=== PATIENT | male | born 2000 | race Asian ===

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

== ENCOUNTER 2020-01-02 16:30 | Inpatient (IN) ==
[2020-01-02 18:05] LABS: Appearance Urine Clear (Clear); Bilirubin Urine Negative (Negative); Blood Urine Negative (Negative); Color Urine Yellow; Glucose Urine UA Negative (Negative); Ketones Urine Negative (Negative); Leukocyte Esterase Urine Negative (Negative); Nitrite Urine Negative (Negative); Protein Urine Negative (Negative); Specific Gravity Urine 1.006 (1.000-1.030); Urobilinogen Urine Negative (Negative)
[2020-01-02 18:25] LABS: Basophils # (auto) 0.01 K/uL (0-0.2); Basophils % (auto) 0.2 %; Eosinophils # (auto) 0.03 K/uL (0-0.5); Eosinophils % (auto) 0.5 %; Hematocrit (blood only) 44.3 % (42-52); Hemoglobin 14.8 g/dL (14.0-18.0); Immature Granulocytes # (auto) 0.01 K/uL (0.00-0.02); Immature Granulocytes % (auto) 0.2 %; Lymphocytes # (auto) 1.19 K/uL (1.2-3.4); Lymphocytes % (auto) 18.4 %; Mean Corpuscular Hemoglobin 30.2 pg (25-34); Mean Corpuscular Hgb Conc 33.4 g/dL (32-36); Mean Corpuscular Volume 90.4 fL (80-100); Mean Platelet Volume 8.9 fL (7.4-10.4); Monocytes # (auto) 0.55 K/uL (0.11-0.59); Monocytes % (auto) 8.5 %; Neutrophils # (auto) 4.69 K/uL (1.4-6.5); Neutrophils % (auto) 72.2 %; Platelet Count 231 K/uL (130-400); RDW Coefficient of Variation 13.4 % (11.5-14.5); RDW Standard Deviation 44.1 fL (36.4-46.3); White Blood Count 6.48 K/uL (4.8-10.8)
--- NOTE | 2020-01-02 18:35 | Emergency Department Note ---
Impression & Plan Suicidal ideation, Bipolar disorder with severe suzanne ED Provider Note NAME: WINTER DUQUE AGE: 19 SEX: M ARRIVES VIA: Walk-In INFORMANT: Patient, ED PROVIDER(S): Harvey Odonnell MD CHIEF COMPLAINT: Suicidal ideation PLAN: Disposition: Admit MEDICAL DECISION MAKING: The patient is a 19-year-old gentleman with a recent past medical history of diagnosis of bipolar disorder with suzanne and psychotic features admitted from 12/18-12/23 who now presents emergency department with recurrence of suicidal ideation with plan to jump off a parking garage. He called police and told him this and was brought to the hospital with 302 warrant. On arrival the patient endorses continued to report suicidal ideation but "less so". He does relate that he wants help and thinks he needs admitted. He reports using marijuana but did not use recently. Otherwise denies any fevers chest pain, shortness of breath, nausea, vomiting, diarrhea, urinary symptoms. He does request COVID-19 testing somewhat out of the blue but he again denies any symptoms or high risk exposures. 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 He did give us permission to contact his parents who live in [place]. WBC, H/H and platelets within normal limits. Chemistry without acidosis. Electrolytes and LFTs unremarkable. UA negative for infection. Aspirin and Tylenol negative. Alcohol negative. COVID-19 RNA NAAT was negative and performed for completeness but no high risk exposures or symptoms were reported. Full drug screen was pending additional urine sample. Otherwise the patient was medically cleared. Of note, our trimming caser did successfully contact his parents and they are also in agreement with plan for admission. Patient medications were ordered as scheduled. Case was signed out to Dr. Fernandez at change of shift with placement pending. Triage Nursing notes reviewed and agree them. Prior medical records reviewed Vital Signs: reviewed and remarkable for no significant abnormalities Differential diagnosis: Mood disorder, infection, hypoglycemia, electrolyte abnormalities, cardiac sources, intracerebral event, toxicologic, trauma, neurologic, as well as other pathologies. ER treatment provided: See below. Laboratory studies: See below HPI: The patient is a 19-year-old gentleman with a recent past medical history of diagnosis of bipolar disorder with suzanne and psychotic features admitted from 12/18-12/23 who now presents emergency department with recurrence of suicidal ideation with plan to jump off a parking garage. He called police and told him this and was brought to the hospital with 302 warrant. On arrival the patient endorses continued suicidal ideation but "less so". He does relate that he wants help and thinks he needs admitted. He reports using marijuana but did not use recently. Otherwise denies any fevers chest pain, shortness of breath, nausea, vomiting, diarrhea, urinary symptoms. He does request COVID-19 testing somewhat out of the blue but he again denies any symptoms or high risk exposures. 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 He did give us permission to contact his parents who live in [place]. ROS: See above HPI for pertinent positives & negatives. A total of 10 systems reviewed and were otherwise negative. PAST MEDICAL HISTORY:See Below PAST SURGICAL HISTORY:See Below FAMILY HISTORY:See Below SOCIAL HISTORY:See Below HOME MEDICATIONS:See Below ALLERGIES:See Below VITALS:See Below PHYSICAL EXAMINATION: GENERAL: Awake, alert, melancholy-appearing, in no distress HENT: Normocephalic, atraumatic. Oropharynx unremarkable. EYES: Normal conjunctiva. Sclera non-icteric. NECK: Supple. No nuchal rigidity. FROM. No JVD. RESPIRATORY: Clear to auscultation. CARDIAC: Regular rate, normal rhythm. Extremities warm and well perfused. Pulses equal. ABDOMEN: Soft, non-distended. No tenderness to palpation. No rebound or guarding. No masses. RECTAL: Deferred. MUSCULOSKELETAL: Chest examination reveals no tenderness. The back is symmetrical on inspection without obvious abnormality. There is no CVA tenderness to palpation. No joint edema. LOWER EXTREMITIES: Calves are equal size bilaterally and non-tender. No edema. No discoloration. NEURO: Normal sensorium. No sensory or motor deficits noted. SKIN: No rash or jaundice noted. PSYCH: Endorses depression and suicidal ideation with plan to jump off a parking garage. Reports past marijuana use. Denies auditory hallucinations. Harvey Odonnell MD Past Med/Surg History Medical History Bipolar disorder with severe suzanne Social History Smoking Status: Former smoker Preferred Language: Syriac Communication Ability: Effective Coater Hand Required: No Beliefs That Will Affect Care: None Feels Safe at Home: No Allergies Allergies Allergy/AdvReac Type Severity Reaction Status Date / Time No Known Allergies Allergy Verified 01/02/20 16:52 Home Meds Home Medications Medication Instructions Recorded Confirmed risperidone 2.5 mg PO QPM 01/02/20 01/02/20 Previous Rx's Medication Instructions Recorded lamotrigine [Lamictal] 25 mg PO QAM #45 tab 12/24/19 Results & Data (ED) Vital Signs Vital Signs - 24 hr 01/02/20 16:35 Temperature 36.7 C Temperature Source Oral Pulse Rate 85 Respiratory Rate 18 Blood Pressure 139/79 Blood Pressure Mean 99 Pulse Oximetry 96 Oxygen Delivery Method Room Air Sepsis Recent Fever Within 48 Hours No Sepsis New/Unexplained Change in Mental Status No Sepsis Action Taken by Nursing No Action Required Laboratory Data Attestation: I reviewed the patient's lab results. Result diagrams: 01/02/20 18:12 01/02/20 18:12 Lab Results 01/02/20 01/02/20 01/02/20 Range/Units 17:40 17:42 17:42 WBC (4.8-10.8) K/uL RBC (4.7-6.1) M/uL Hgb (14.0-18.0) g/dL Hct (42-52) % MCV (80-100) fL MCH (25-34) pg MCHC (32-36) g/dL RDW Std Deviation (36.4-46.3) fL RDW Coeff of Kaylah (11.5-14.5) % Plt Count (130-400) K/uL MPV (7.4-10.4) fL Immature Gran % (Auto) % Neut % (Auto) % Lymph % (Auto) % [place] % (Auto) % Eos % (Auto) % Baso % (Auto) % Neut # (Auto) (1.4-6.5) K/uL Lymph # (Auto) (1.2-3.4) K/uL [place] # (Auto) (0.11-0.59) K/uL Eos # (Auto) (0-0.5) K/uL Baso # (Auto) (0-0.2) K/uL Immature Gran # (Auto) (0.00-0.02) K/uL Sodium (136-145) mmol/L Potassium (3.5-5.1) mmol/L Chloride (98-107) mmol/L Carbon Dioxide (21-32) mmol/L Anion Gap (3-11) BUN (7-18) mg/dl Creatinine (0.6-1.4) mg/dl Est Cr Clr Drug Dosing ml/min Est GFR ( Amer) Est GFR (Non-Af Amer) BUN/Creatinine Ratio (10-20) Glucose (70-99) mg/dl Calcium (8.5-10.1) mg/dl Total Bilirubin (0.2-1) mg/dl AST (15-37) U/L ALT (12-78) U/L Alkaline Phosphatase (45-117) U/L Total Protein (6.4-8.2) gm/dl Albumin (3.4-5.0) gm/dl Globulin (2.5-4.0) gm/dl Albumin/Globulin Ratio (0.9-2) TSH (0.300-4.500) uIu/ml Urine Color Yellow Urine Appearance Clear (Clear) Urine pH 8.0 H (4.5-7.5) Ur Specific [place] 1.006 (1.000-1.030) Urine Protein Negative (Negative) Urine Glucose (UA) Negative (Negative) Urine Ketones Negative (Negative) Urine Blood Negative (Negative) Urine Nitrite Negative (Negative) Urine Bilirubin Negative (Negative) Urine Urobilinogen Negative (Negative) Ur Leukocyte Esterase Negative (Negative) Salicylates (2.8-20) mg/dl Urine Opiates Screen (Neg) Ur Methadone, Qual (Neg) Acetaminophen (10-30) ug/ml Urine Barbiturates (Neg) Ur Phencyclidine (PCP) (Neg) U Amphetamin/Meth Scrn (Neg) MDMA (Ecstasy) Screen (Neg) U Benzodiazepines Scrn (Neg) Ur Cocaine Metabolite (Neg) U Marijuana (THC) Screen (Neg) Ethyl Alcohol mg/dL (0-3) mg/dl COVID-19 Eval [facility] SARS-CoV-2, RNA, NAAT NEGATIVE (NEGATIVE) 01/02/20 01/02/20 01/02/20 Range/Units 18:12 18:12 18:12 WBC 6.48 (4.8-10.8) K/uL RBC 4.90 (4.7-6.1) M/uL Hgb 14.8 (14.0-18.0) g/dL Hct 44.3 (42-52) % MCV 90.4 (80-100) fL MCH 30.2 (25-34) pg MCHC 33.4 (32-36) g/dL RDW Std Deviation 44.1 (36.4-46.3) fL RDW Coeff of Kaylah 13.4 (11.5-14.5) % Plt Count 231 (130-400) K/uL MPV 8.9 (7.4-10.4) fL Immature Gran % (Auto) 0.2 % Neut % (Auto) 72.2 % Lymph % (Auto) 18.4 % [place] % (Auto) 8.5 % Eos % (Auto) 0.5 % Baso % (Auto) 0.2 % Neut # (Auto) 4.69 (1.4-6.5) K/uL Lymph # (Auto) 1.19 L (1.2-3.4) K/uL [place] # (Auto) 0.55 (0.11-0.59) K/uL Eos # (Auto) 0.03 (0-0.5) K/uL Baso # (Auto) 0.01 (0-0.2) K/uL Immature Gran # (Auto) 0.01 (0.00-0.02) K/uL Sodium 140 (136-145) mmol/L Potassium 4.0 (3.5-5.1) mmol/L Chloride 106 (98-107) mmol/L Carbon Dioxide 30 (21-32) mmol/L Anion Gap 4.0 (3-11) BUN 11 (7-18) mg/dl Creatinine 1.07 (0.6-1.4) mg/dl Est Cr Clr Drug Dosing 125.5 ml/min Est GFR ( Amer) 116.0 Est GFR (Non-Af Amer) 100.1 BUN/Creatinine Ratio 10.4 (10-20) Glucose 90 (70-99) mg/dl Calcium 9.0 (8.5-10.1) mg/dl Total Bilirubin 0.5 (0.2-1) mg/dl AST 30 (15-37) U/L ALT 30 (12-78) U/L Alkaline Phosphatase 99 (45-117) U/L Total Protein 8.3 H (6.4-8.2) gm/dl Albumin 4.2 (3.4-5.0) gm/dl Globulin 4.1 H (2.5-4.0) gm/dl Albumin/Globulin Ratio 1.0 (0.9-2) TSH 1.360 (0.300-4.500) uIu/ml Urine Color Urine Appearance (Clear) Urine pH (4.5-7.5) Ur Specific [place] (1.000-1.030) Urine Protein (Negative) Urine Glucose (UA) (Negative) Urine Ketones (Negative) Urine Blood (Negative) Urine Nitrite (Negative) Urine Bilirubin (Negative) Urine Urobilinogen (Negative) Ur Leukocyte Esterase (Negative) Salicylates < 1.7 L (2.8-20) mg/dl Urine Opiates Screen (Neg) Ur Methadone, Qual (Neg) Acetaminophen < 2 L (10-30) ug/ml Urine Barbiturates (Neg) Ur Phencyclidine (PCP) (Neg) U Amphetamin/Meth Scrn (Neg) MDMA (Ecstasy) Screen (Neg) U Benzodiazepines Scrn (Neg) Ur Cocaine Metabolite (Neg) U Marijuana (THC) Screen (Neg) Ethyl Alcohol mg/dL (0-3) mg/dl COVID-19 Eval Order SARS-CoV-2, RNA, NAAT (NEGATIVE) 01/02/20 01/02/20 Range/Units 18:12 20:33 WBC (4.8-10.8) K/uL RBC (4.7-6.1) M/uL Hgb (14.0-18.0) g/dL Hct (42-52) % MCV (80-100) fL MCH (25-34) pg MCHC (32-36) g/dL RDW Std Deviation (36.4-46.3) fL RDW Coeff of Kaylah (11.5-14.5) % Plt Count (130-400) K/uL MPV (7.4-10.4) fL Immature Gran % (Auto) % Neut % (Auto) % Lymph % (Auto) % [place] % (Auto) % Eos % (Auto) % Baso % (Auto) % Neut # (Auto) (1.4-6.5) K/uL Lymph # (Auto) (1.2-3.4) K/uL [place] # (Auto) (0.11-0.59) K/uL Eos # (Auto) (0-0.5) K/uL Baso # (Auto) (0-0.2) K/uL Immature Gran # (Auto) (0.00-0.02) K/uL Sodium (136-145) mmol/L Potassium (3.5-5.1) mmol/L Chloride (98-107) mmol/L Carbon Dioxide (21-32) mmol/L Anion Gap (3-11) BUN (7-18) mg/dl Creatinine (0.6-1.4) mg/dl Est Cr Clr Drug Dosing ml/min Est GFR ( Amer) Est GFR (Non-Af Amer) BUN/Creatinine Ratio (10-20) Glucose (70-99) mg/dl Calcium (8.5-10.1) mg/dl Total Bilirubin (0.2-1) mg/dl AST (15-37) U/L ALT (12-78) U/L Alkaline Phosphatase (45-117) U/L Total Protein (6.4-8.2) gm/dl Albumin (3.4-5.0) gm/dl Globulin (2.5-4.0) gm/dl Albumin/Globulin Ratio (0.9-2) TSH (0.300-4.500) uIu/ml Urine Color Urine Appearance (Clear) Urine pH (4.5-7.5) Ur Specific [place] (1.000-1.030) Urine Protein (Negative) Urine Glucose (UA) (Negative) Urine Ketones (Negative) Urine Blood (Negative) Urine Nitrite (Negative) Urine Bilirubin (Negative) Urine Urobilinogen (Negative) Ur Leukocyte Esterase (Negative) Salicylates (2.8-20) mg/dl Urine Opiates Screen Neg (Neg) Ur Methadone, Qual Neg (Neg) Acetaminophen (10-30) ug/ml Urine Barbiturates Neg (Neg) Ur Phencyclidine (PCP) Neg (Neg) U Amphetamin/Meth Scrn Neg (Neg) MDMA (Ecstasy) Screen Neg (Neg) U Benzodiazepines Scrn Neg (Neg) Ur Cocaine Metabolite Neg (Neg) U Marijuana (THC) Screen Neg (Neg) Ethyl Alcohol mg/dL < 3.0 (0-3) mg/dl COVID-19 Eval Order SARS-CoV-2, RNA, NAAT (NEGATIVE) Administered Medications Risperidone (Risperidone 1 Mg Tablet) 2.5 mg PO QPM WENCESLAO Stop: 02/01/20 20:59 Last Admin: 01/02/20 20:56 Dose: 2.5 mg Documented by: [id number] Blood Pressure Blood Pressure Findings: Normal blood pressure Blood Pressure Disposition: did not require urgent referral Discharge Plan Visit Data Chief Complaint: Mental Health Evaluation Stated Complaint: 302 ED Provider: Anselmo Fernandez Discharge Problem: Suicidal ideation, Bipolar disorder with severe suzanne Patient Disposition: Admitted As Inpatient Discharge Instructions Interventions: ED Discharge Assessment Last Done: 01/02/20 22:18
[2020-01-02 18:45] LABS: Albumin Level 4.2 gm/dl (3.4-5.0); BUN Creatinine Ratio 10.4 (10-20); Creatinine Clr Calc Pharmacy 125.5 ml/min; Est GFR (Non-African American) 100.1
[2020-01-02 18:55] LABS: Acetaminophen < 2 ug/ml (10-30); Salicylate < 1.7 mg/dl (2.8-20)
[2020-01-02 18:56] LABS: Bilirubin,Total 0.5 mg/dl (0.2-1); Globulin 4.1 gm/dl (2.5-4.0); Thyroid Stimulating Hormone 1.36 uIu/ml (0.300-4.500); Total Protein 8.3 gm/dl (6.4-8.2)
--- NOTE | 2020-01-02 19:54 | Emergency Department Note ---
ED Visit Note 1952: Signout from Dr. lawson. 19-year-old male hemodynamically stable. Here for suicidal ideation was planning on jumping off of a parking deck. Patient medically cleared awaiting psychiatric placement. 2222: Vital signs stable. Patient excepted to 3 S. .
[2020-01-02] MEDS ORDERED: risperiDONE 1 MG TABLET PO SCH (21:00)
[2020-01-02 21:32] LABS: Amphetamines+Metham, Urine Neg (Neg); Barbiturates, Urine Neg (Neg); Benzodiazepine, Urine Neg (Neg); Cocaine, Urine Neg (Neg); MDMA (Ecstacy), Urine Neg (Neg); Methadone, Urine Neg (Neg); Opiate, Urine Neg (Neg); Phencyclidine, Urine Neg (Neg)
[2020-01-02] MEDS ORDERED: BISMUTH SUBSALICYLATE LIQD 236 ML PO PRN (22:07)
[2020-01-02] MEDS ORDERED: ACETAMINOPHEN 325 MG TAB PO PRN (22:07)
[2020-01-02] MEDS ORDERED: MAGNESIUM HYDROXIDE SUSP 30 ML UDC PO PRN (22:07)
[2020-01-02] MEDS ORDERED: SODIUM CHLORIDE 0.65% NA SOLN 45 ML (OCEAN) PRN (22:07)
[2020-01-02] MEDS ORDERED: ALUMINUM/MAGNESIUM SUSP 30 ML UDC PO PRN (22:07)
[2020-01-03] MEDS ORDERED: lamoTRIgine 25 MG TAB PO SCH (09:00)
[2020-01-03] MEDS ORDERED: lamoTRIgine 25 MG TAB PO ONE (09:38)
[2020-01-03] MEDS ORDERED: BENZTROPINE MESYLATE 1 MG TAB PO PRN (10:13)
--- NOTE | 2020-01-03 10:13 | History & Physical ---
Date of Service January 03, 2020 Impression / Recommendations Impression Vincent is a 19 yo male presenting with SI and ongoing thought disorganization related to bipolar disorder, episode initially triggered by heavy MJ use but not resolving. It is not clear if he has been complying with his medication. He is opposed to switching to BLNAD. He continues to lack insight into his illness and his level of impulsivity/mood lability given mixed episode. (1) Bipolar disorder with severe suzanne: The patient was admitted to the [facility] ([facility] mental health unit) on q15 min checks (behavioral with suicide precautions) for safety. The patient will participate in group, recreational, and milieu therapies and will be offered additional individual and family sessions as clinically appropriate. He was scheduled to increase his Lamictal on 01/04, will titrate tomorrow given good tolerability and ongoing suzanne. Titrate Risperdal for ease of dosing and patient prefers split dosing given daytime symptoms, will give 1 mg in am and 2 mg hs and monitor. No evidence of EPS. Inventory Assets Strengths: intelligent, family support, cut back/eliminated MJ Needs: increase insight into his condition. Risk Factors Assessment Male: Yes Do You Have Access To A Gun?: No Mental Health Diagnoses: Yes Protective Factors Assessment Employed: No Supportive Family: Yes Psychiatric History Identifying Data VINCENT DUQUE is a 19-year-old M, [employer] sophomore (withdrew for semester) who cu rrently lives in a new apartment alone, was just discharged from on 12/24/19, and was admitted on 01/02/20 22:07 on a 201 voluntary commitment for SI with plan. Chief Complaint "The thoughts came out of nowhere but I'm fine now, I can do this on my own". History of Present Illness Patient was admitted last time on a 302 commitment following heavy MJ use with psychotic symptoms (hills and thought disorganization/expansiveness) and was started on Risperdal and lamictal. His suzanne improved and he was discharged to [place] to stay with family. They ultimately decided to withdraw him from the semester and father found him an apartment. Vincent returned to [place] yesterday. He states he was relating well to parents and taking his medication but the father told the emergency dept. he may not be. Urine tox was negative for MJ. It's unclear how long Vincent was having suicidal thoughts, at first he said less than a day then later stated he had the thoughts longer. He may not be providing accurate history re: auditory hallucinations either as he denies today that "they are there" but had endorsed in the ER then made a disconnected statement about nature rather than describing them. He had some insight that he was feeling more anxious/restless and impulsive and that is when he called the police yesterday and was brought to ED on 302 box [address] warrant. Vincent denies rash. Vegetative symptoms are denied as sleep and appetite are intact. He returned to [place] to be closer to his girlfriend. He states that he is not living with her as she is following her parents "traditional wishes" as they are not . Past Psychiatric History Current Psychiatric Diagnosis: Bipolar Disorder Previous Psych Admissions: Dec 2019 [facility] Do You Have Access To A Gun?: No History of Previous Suicide Attempt: No Past Medication Trials: only current as no hx prior to hospitalization Allergies Allergy/AdvReac Type Severity Reaction Status Date / Time No Known Allergies Allergy Verified 01/02/20 16:52 Home Medications Home Medications Medication Instructions Recorded Confirmed Type lamotrigine [Lamictal] 25 mg PO QAM #45 tab 12/24/19 01/02/20 Rx risperidone 2.5 mg PO QPM 01/02/20 01/02/20 History Family History Family Mental Health History Comment: Father-depression, reports his mother also has mental health issues Alcohol History Hx of Alcohol Use Over the Past 12 Months: Yes Smoking Use tobacco type: cigarettes Smoking Status: Former smoker Substance History Hx of Prescription Med Misuse Over the Past 12 Months: No Hx of Over the Counter Med Misuse Over the Past 12 Months: No Hx of Inhalent Misuse Over the Past 12 Months: No Hx of Organic Substance Use Over the Past 12 Months: Yes (previously used marijuana) Hx of Illegal Substances/Street Drug Use Over Past 12 Months: No Problems as a Result of Past Substance Use: None Identified Personal History Living Arrangements: Home Living Arrangements Comments: Lives with parents. Reports got an apartment here Highest Grade Completed: Some College Highest Grade Completed Comment: Was a sophomore at [employer]. Dropped out of classes this semester with intention of starting again in Spring Employment Status: Student Marital Status: Single Beliefs That Will Affect Care: None Hx Legal Problems: No Patient History Medical History Bipolar disorder with severe suzanne Social History Smoking Status: Former smoker Preferred Language: Armenian Communication Ability: Effective Manager Rn Case Required: No Beliefs That Will Affect Care: None Feels Safe at Home: No Review of Systems Review of Systems: All systems reviewed & are unremarkable except as noted in HPI & below Physical Exam Psychiatric: Orientation: alert and oriented x 3 Apperance: appropriately dressed Eye Contact: + fair eye contact Motor Behavior: no abnormal motor movements Speech: normal rate/rhythm/volume of speech Affect: + constricted affect Mood: + depressed mood and + anxious mood Thought Process: + circumstantial thought process and + concrete thought process Thought Content: no delusions Suicidal Thoughts: denies suicidal thoughts (but reports vary widely and he can't state what he would do if came back) Homicidal Thoughts: denies homicidal thoughts Hallucinations: no auditory hallucinations and no visual hallucinations Cognition: + attention not intact Estimated Intelligence: consistent with education level Insight: + poor insight Judgement: + poor judgement Vital Signs (Past 24 Hours): Last Vital Signs Temp 36.6 C 01/03/20 06:00 Pulse 101 H 01/03/20 06:37 Resp 17 01/03/20 06:00 BP 119/87 01/03/20 06:37 Pulse Ox 96 01/02/20 22:34 Exam Statement: A physical exam was performed in the ED by Dr. Odonnell for the purposes of medical clearance. I accept that physical as correct and adequate for the purposes of the inpatient physical exam. Results & Data ([facility]) Laboratory Results Laboratory Results - last 24 hr 01/02/20 01/02/20 01/02/20 17:40 17:42 17:42 WBC RBC Hgb Hct MCV MCH MCHC RDW Std Deviation RDW Coeff of Kaylah Plt Count MPV Immature Gran % (Auto) Neut % (Auto) Lymph % (Auto) [place] % (Auto) Eos % (Auto) Baso % (Auto) Neut # (Auto) Lymph # (Auto) [place] # (Auto) Eos # (Auto) Baso # (Auto) Immature Gran # (Auto) Sodium Potassium Chloride Carbon Dioxide Anion Gap BUN Creatinine Est Cr Clr Drug Dosing Est GFR ( Amer) Est GFR (Non-Af Amer) BUN/Creatinine Ratio Glucose Calcium Total Bilirubin AST ALT Alkaline Phosphatase Total Protein Albumin Globulin Albumin/Globulin Ratio TSH Urine Color Yellow Urine Appearance Clear Urine pH 8.0 H Ur Specific [place] 1.006 Urine Protein Negative Urine Glucose (UA) Negative Urine Ketones Negative Urine Blood Negative Urine Nitrite Negative Urine Bilirubin Negative Urine Urobilinogen Negative Ur Leukocyte Esterase Negative Salicylates Urine Opiates Screen Ur Methadone, Qual Acetaminophen Urine Barbiturates Ur Phencyclidine (PCP) U Amphetamin/Meth Scrn MDMA (Ecstasy) Screen U Benzodiazepines Scrn Ur Cocaine Metabolite U Marijuana (THC) Screen Ethyl Alcohol mg/dL COVID-19 Eval Order Covid19 [facility] SARS-CoV-2, RNA, NAAT NEGATIVE 01/02/20 01/02/20 01/02/20 18:12 18:12 18:12 WBC 6.48 RBC 4.90 Hgb 14.8 Hct 44.3 MCV 90.4 MCH 30.2 MCHC 33.4 RDW Std Deviation 44.1 RDW Coeff of Kaylah 13.4 Plt Count 231 MPV 8.9 Immature Gran % (Auto) 0.2 Neut % (Auto) 72.2 Lymph % (Auto) 18.4 [place] % (Auto) 8.5 Eos % (Auto) 0.5 Baso % (Auto) 0.2 Neut # (Auto) 4.69 Lymph # (Auto) 1.19 L [place] # (Auto) 0.55 Eos # (Auto) 0.03 Baso # (Auto) 0.01 Immature Gran # (Auto) 0.01 Sodium 140 Potassium 4.0 Chloride 106 Carbon Dioxide 30 Anion Gap 4.0 BUN 11 Creatinine 1.07 Est Cr Clr Drug Dosing 125.5 Est GFR ( Amer) 116.0 Est GFR (Non-Af Amer) 100.1 BUN/Creatinine Ratio 10.4 Glucose 90 Calcium 9.0 Total Bilirubin 0.5 AST 30 ALT 30 Alkaline Phosphatase 99 Total Protein 8.3 H Albumin 4.2 Globulin 4.1 H Albumin/Globulin Ratio 1.0 TSH 1.360 Urine Color Urine Appearance Urine pH Ur Specific [place] Urine Protein Urine Glucose (UA) Urine Ketones Urine Blood Urine Nitrite Urine Bilirubin Urine Urobilinogen Ur Leukocyte Esterase Salicylates < 1.7 L Urine Opiates Screen Ur Methadone, Qual Acetaminophen < 2 L Urine Barbiturates Ur Phencyclidine (PCP) U Amphetamin/Meth Scrn MDMA (Ecstasy) Screen U Benzodiazepines Scrn Ur Cocaine Metabolite U Marijuana (THC) Screen Ethyl Alcohol mg/dL COVID-19 Eval Order SARS-CoV-2, RNA, NAAT 01/02/20 01/02/20 18:12 20:33 WBC RBC Hgb Hct MCV MCH MCHC RDW Std Deviation RDW Coeff of Kaylah Plt Count MPV Immature Gran % (Auto) Neut % (Auto) Lymph % (Auto) [place] % (Auto) Eos % (Auto) Baso % (Auto) Neut # (Auto) Lymph # (Auto) [place] # (Auto) Eos # (Auto) Baso # (Auto) Immature Gran # (Auto) Sodium Potassium Chloride Carbon Dioxide Anion Gap BUN Creatinine Est Cr Clr Drug Dosing Est GFR ( Amer) Est GFR (Non-Af Amer) BUN/Creatinine Ratio Glucose Calcium Total Bilirubin AST ALT Alkaline Phosphatase Total Protein Albumin Globulin Albumin/Globulin Ratio TSH Urine Color Urine Appearance Urine pH Ur Specific [place] Urine Protein Urine Glucose (UA) Urine Ketones Urine Blood Urine Nitrite Urine Bilirubin Urine Urobilinogen Ur Leukocyte Esterase Salicylates Urine Opiates Screen Neg Ur Methadone, Qual Neg Acetaminophen Urine Barbiturates Neg Ur Phencyclidine (PCP) Neg U Amphetamin/Meth Scrn Neg MDMA (Ecstasy) Screen Neg U Benzodiazepines Scrn Neg Ur Cocaine Metabolite Neg U Marijuana (THC) Screen Neg Ethyl Alcohol mg/dL < 3.0 COVID-19 Eval Order SARS-CoV-2, RNA, NAAT Current Inpatient Medications Current Inpatient Medications: Current Inpatient Medications Acetaminophen (Acetaminophen 325 Mg Tab) 650 mg PO Q4H PRN PRN Reason: Headache or Minor Fever Stop: 02/01/20 22:06 Al Hydrox/Mg Hydrox/Simethicone (Aluminum/Magnesium Susp 30 Ml Udc) 30 ml PO Q4H PRN PRN Reason: GI Upset Stop: 02/01/20 22:06 Bismuth Subsalicylate (Bismuth Subsalicylate Liqd 236 Ml) 15 ml PO PRN PRN PRN Reason: Loose Stool Stop: 02/01/20 22:06 Hydroxyzine HCl (Hydroxyzine Hcl 25 Mg Tab) 50 mg PO HSZ PRN PRN Reason: Insomnia Stop: 02/01/20 22:06 Hydroxyzine HCl (Hydroxyzine Hcl 25 Mg Tab) 25 mg PO Q4H PRN PRN Reason: Anxiety Stop: 02/01/20 22:06 Lamotrigine (Lamotrigine 25 Mg Tab) 50 mg PO QAM WENCESLAO Stop: 02/03/20 08:59 Magnesium Hydroxide (Magnesium Hydroxide Susp 30 Ml Udc) 30 ml PO DAILY PRN PRN Reason: Constipation Stop: 02/01/20 22:06 Risperidone (Risperidone 1 Mg Tablet) 1 mg PO QAM WENCESLAO Stop: 02/02/20 09:44 Risperidone (Risperidone 2 Mg Tablet) 2 mg PO HS WENCESLAO Stop: 02/02/20 21:59 Sodium Chloride (Sodium Chloride 0.65% Na Soln 45 Ml (Juana Diaz)) 1 - 2 sprays NA PRN PRN PRN Reason: Nasal Dryness/Congestion Stop: 02/01/20 22:06
[2020-01-03] MEDS: risperiDONE 1 MG TABLET PO SCH (10:19)
[2020-01-03] MEDS: risperiDONE 2 MG TABLET PO SCH (21:15)
[2020-01-03] MEDS: haloperidoL 5 MG TAB PO PRN (22:58)
[2020-01-04] MEDS: lamoTRIgine 25 MG TAB PO SCH (08:45)
[2020-01-04] MEDS: risperiDONE 1 MG TABLET PO SCH ×3 (08:46→20:35)
--- NOTE | 2020-01-04 10:00 | Psychiatric Progress Note ---
Date of Service January 04, 2020 Impression / Recommendations Impression Vincent is a 19 y/o male with bipolar type I who was discharged from our unit 12/24/2019 after hospitalization for psychosis determined to be related to bipolar disorder and possibly cannabis use, during which he was started on lamotrigine and risperidone, and re-presented to the ER 9 days later with suicidal ideation and a plan to jump off a parking garage, with prominent thought disorganization, paranoia, hallucinations, and poor insight and judgment. It is not clear if he has been complying with his medication. He is opposed to switching to BLAND. He is impulsive, labile, with poor insight and judgment. Although when he was discharge from our unit 2 weeks ago the plan was for him to return to [place] and lives with parents, he is since gotten an apartment in [place] and returned here, and has no outpatient treatment here. Inpatient treatment remains medically necessary due to the severity of his symptoms, inability to provide for his own basic needs without the care and assistance of others, and risk for suicide if discharged. (1) Bipolar 1 disorder: 01/02 - The patient was admitted to the [facility] ([facility] mental health unit) on q15 min checks (behavioral with suicide precautions) for safety. The patient will participate in group, recreational, and milieu therapies and will be offered additional individual and family sessions as clinically appropriate. He was scheduled to increase his Lamictal on 01/04, will titrate tomorrow given good tolerability and ongoing suzanne. Titrate Risperdal for ease of dosing and patient prefers split dosing given daytime symptoms, will give 1 mg in am and 2 mg hs and monitor. No evidence of EPS. 01/03 -continue voluntary hospitalization, consider the need for conversion to an involuntary 302 commitment if patient persists in requests to leave, as he remains psychotic and is in a mixed state with suicidal ideation. He has no local outpatient treatment, and will need to be referred for psychiatry and therapy. He has little support in the area, and got an apartment where he plans to live alone, despite recommendations at the time of his last hospitalization that he returned home to [place] to live with parents. It is unclear why they did not follow this plan, and he will need a meeting with his father once he is less psychotic and able to tolerate it. -Move patient to a private room as soon as it is available, given his poor sleep, inappropriate interpersonal behavior, psychotic symptoms, and behavioral dyscontrol. -Increase risperidone to 1 mg every morning and every 5 p.m. and 2 mg at bedtime. Fasting labs from 12/21/2019 reviewed; glucose 106, FLP normal. Continue lamotrigine titration per standard titration schedule. (2) Cannabis abuse: 01/03 -reviewed during recent hospitalization, reportedly patient cut back on his marijuana use in the week that he was out of the hospital. UDS -on second presentation. Continue to support abstinence from controlled substances, and provide psychoeducation about the risks of substance use. Inventory Assets Strengths: intelligent, family support, cut back/eliminated MJ Needs: increase insight into his condition, local supports and outpatient treatment. Risk Factors Assessment Male: Yes : No Do You Have Access To A Gun?: No Health Problems: No Mental Health Diagnoses: Yes Previous Psychiatric Hospitalization: Yes Hopelessness: Yes Smoker: No Protective Factors Assessment : No Responsible for Young Children: No Employed: No Supportive Family: Yes Good Rapport with Provider: No (No outpatient treatment) Interval History Identifying Information VINCENT DUQUE is a 19-year-old M, [employer] sophomore (withdrew for semester) who currently lives in a new apartment alone, was just discharged from on 12/24/19 after hospitalization for bipolar type I with psychosis, and was admitted on 01/02/20 22:07 on a 201 voluntary commitment for SI with a plan to jump off a parking garage. He was brought in by police on a 302, which was dispositioned in the ER when he signed involuntarily. Chief Complaint "My brain is really tired from all the tearing". Review of Systems Sleep Information Total Hours of Sleep: 5 Sleep Comments: pt used the quiet room to sleep. pt given vistaril per rn. pt on q-15 minute checks. pt appeared to be asleep @0100 and thereafter. Meal Information Percent Meal Consumed - Breakfast: 75 Percent Meal Consumed - Lunch: 100 Percent Meal Consumed - Dinner: 100 Subjective Subjective Patient was seen & assessed and interval progress reviewed with treatment team. On admission yesterday, his risperidone was increased by 0.5 mg staff, and lamotrigine is being increased to 50 mg daily today (was started during his last hospitalization here earlier this month). Staff spoke with his father for collateral information: He drove to [place] from [facility] yesromie alvarado, and although the patient refused to sign a release, his father provided the following information. He and the patient stayed at a local hotel for 2 days after the patient was discharged 12/24/2019, while looking for apartments for the patient in [place]. They returned to [place] for 2 days, then back to [place] on 12/29/2019, when they signed a release for an apartment for the patient, and again returned to [place] until 01/01/2020. The father stated the patient was "his normal self" until 12/31. Father returned to [place] and left patient alone in his apartment in [place] on that day, and received a call from the patient the following day during which the patient was "not in his normal mind," and that afternoon patient returned to the ER. Staff report the patient was increasingly paranoid and irritable on the unit yesterday, made frequent contradictory statements, for example stating he came back to the hospital because he feels safe here, but moments later saying he hates it here and does not trust staff. He requested to sign a 72-hour notice, but when it was presented to him, refused to sign it. He again demanded to leave last evening, was becoming more agitated, and refused Haldol and Ativan. He called his father on the phone, and father then presented to the ER, and spoke with the patient on the phone and encouraged him to take medication. He ultimately agreed to take the Haldol, but took it out of his mouth and put it in his pocket. Staff intervened and were able to get him to take the pill with a mouth check. He was hyperverbal and disorganized overnight, was overstimulated by others, and had to use the quiet room. On my assessment today, he was seen in the quiet room, where he has returned to bed after eating breakfast. He states he is tired despite sleeping all night, which he attributes to "all the tearing." When asked to explain this further, he states "the learning I've been doing, the lessons I've learned, they make me very tired." He says he is learning "to be nice to people of all color, race, gender, to be happy, I don't want to lie to people anymore, does that make sense?" He says he "lies to protect them," and repeatedly asks "does that make sense?" He says his suicidal thoughts are decreased, but he is worried they will come back because "my suzanne" triggered them. When attempting to clarify this, he states "there was almost nothing for me, in the end I was almost happy to be here, to for, that makes sense? My head was a jumble of things." He endorses hallucinations which he describes as "believing everything is a lie, does that make sense? It's true and not true." He says he will sign a release for his father, although just prior to my interview he refused to sign a release when the neonatal social worker brought it in. He cannot explain why he refused. He says he was taking medications after discharge earlier this month, "but they weren't strong enough." He says he has outpatient care in [place], and then says he does not have and outpatient care. Staff returned and he signed a release for his father, read the part of the release that states it is valid for 1 year, and commented that 1 year would be a long time to stay in the hospital. Physical Exam Psychiatric Orientation: alert and cooperative (But a very limited historian) Apperance: + disheveled male appearing his stated age. Lying in bed (mattress on the floor of the safe room) in no acute distress. Eyes closed for most of the interview. Eye Contact: + poor eye contact Soft, mumbles under his breath, difficult to hear. Restricted to tired, confused. Thought Process: + tangential thought process and + incoherent thought process Often answers with unrelated information, disorganized Thought Content: + hopelessness and + worthlessness Suicidal Thoughts: + reports suicidal thoughts Homicidal Thoughts: denies homicidal thoughts Hallucinations: + auditory hallucinations Cognition: + recent memory not intact, + remote memory not intact, + attention not intact and + language not intact Insight: + severely impaired insight Judgement: + severely impaired judgement Vital Signs (Past 24 Hours) Last Vital Signs Temp 36.6 C 01/03/20 20:50 Pulse 101 H 01/03/20 06:37 Resp 17 01/03/20 06:00 BP 119/87 01/03/20 06:37 Pulse Ox 96 01/02/20 22:34 Results & Data ([facility]) Current Inpatient Medications Current Inpatient Medications: Current Inpatient Medications Acetaminophen (Acetaminophen 325 Mg Tab) 650 mg PO Q4H PRN PRN Reason: Headache or Minor Fever Stop: 02/01/20 22:06 Al Hydrox/Mg Hydrox/Simethicone (Aluminum/Magnesium Susp 30 Ml Udc) 30 ml PO Q4H PRN PRN Reason: GI Upset Stop: 02/01/20 22:06 Benztropine Mesylate (Benztropine Mesylate 1 Mg Tab) 1 mg PO BID PRN PRN Reason: Muscle Spasm Stop: 02/02/20 10:12 Bismuth Subsalicylate (Bismuth Subsalicylate Liqd 236 Ml) 15 ml PO PRN PRN PRN Reason: Loose Stool Stop: 02/01/20 22:06 Haloperidol (Haloperidol 5 Mg Tab) 5 mg PO Q4H PRN PRN Reason: Anxiety/Agitation Stop: 02/02/20 13:00 Last Admin: 01/03/20 22:58 Dose: 5 mg Documented by: Hydroxyzine HCl (Hydroxyzine Hcl 25 Mg Tab) 50 mg PO HSZ PRN PRN Reason: Insomnia Stop: 02/01/20 22:06 Last Admin: 01/03/20 23:28 Dose: 50 mg Documented by: Hydroxyzine HCl (Hydroxyzine Hcl 25 Mg Tab) 25 mg PO Q4H PRN PRN Reason: Anxiety Stop: 02/01/20 22:06 Lamotrigine (Lamotrigine 25 Mg Tab) 50 mg PO QAM WENCESLAO Stop: 02/03/20 08:59 Last Admin: 01/04/20 08:45 Dose: 50 mg Documented by: Lorazepam (Lorazepam 1 Mg Tab) 1 mg PO Q6H PRN PRN Reason: Anxiety/Agitation Stop: 02/02/20 13:00 Magnesium Hydroxide (Magnesium Hydroxide Susp 30 Ml Udc) 30 ml PO DAILY PRN PRN Reason: Constipation Stop: 02/01/20 22:06 Risperidone (Risperidone 1 Mg Tablet) 1 mg PO QAM WENCESLAO Stop: 02/02/20 09:44 Last Admin: 01/04/20 08:46 Dose: 1 mg Documented by: Risperidone (Risperidone 2 Mg Tablet) 2 mg PO HS WENCESLAO Stop: 02/02/20 21:59 Last Admin: 01/03/20 21:15 Dose: 2 mg Documented by: Sodium Chloride (Sodium Chloride 0.65% Na Soln 45 Ml ([place])) 1 - 2 sprays NA PRN PRN PRN Reason: Nasal Dryness/Congestion Stop: 02/01/20 22:06 Mental Health & Subst Abuse Tx Therapist Date of Therapist Appointment: 01/11/20
[2020-01-04] MEDS: risperiDONE 2 MG TABLET PO SCH (20:36)
[2020-01-04] MEDS: LORazepam 1 MG TAB PO PRN (22:10)
[2020-01-05] MEDS: lamoTRIgine 25 MG TAB PO SCH (07:51)
[2020-01-05] MEDS: risperiDONE 1 MG TABLET PO SCH ×2 (07:51→20:34)
[2020-01-05] MEDS: haloperidoL 5 MG TAB PO PRN (09:27)
[2020-01-05] MEDS: LORazepam 1 MG TAB PO PRN ×2 (09:28→17:07)
--- NOTE | 2020-01-05 13:26 | Psychiatric Progress Note ---
Date of Service January 05, 2020 Impression / Recommendations Impression Vincent is a 19 y/o male with bipolar type I who was discharged from our unit 12/24/2019 after hospitalization for psychosis determined to be related to bipolar disorder and possibly cannabis use, during which he was started on lamotrigine and risperidone, and re-presented to the ER 9 days later with suicidal ideation and a plan to jump off a parking garage, with prominent thought disorganization, paranoia, hallucinations, and poor insight and judgment. It is not clear if he has been complying with his medication. He is opposed to switching to BLAND. He is impulsive, labile, with poor insight and judgment. Although when he was discharge from our unit 2 weeks ago the plan was for him to return to [place] and lives with parents, he is since gotten an apartment in [place] and returned here, and has no outpatient treatment here. Inpatient treatment remains medically necessary due to the severity of his symptoms, inability to provide for his own basic needs without the care and assistance of others, and risk for suicide if discharged. (1) Bipolar 1 disorder: 01/02 - The patient was admitted to the [facility] ([facility] mental health unit) on q15 min checks (behavioral with suicide precautions) for safety. The patient will participate in group, recreational, and milieu therapies and will be offered additional individual and family sessions as clinically appropriate. He was scheduled to increase his Lamictal on 01/04, will titrate tomorrow given good tolerability and ongoing suzanne. Titrate Risperdal for ease of dosing and patient prefers split dosing given daytime symptoms, will give 1 mg in am and 2 mg hs and monitor. No evidence of EPS. 01/03 -continue voluntary hospitalization, consider the need for conversion to an involuntary 302 commitment if patient persists in requests to leave, as he remains psychotic and is in a mixed state with suicidal ideation. He has no local outpatient treatment, and will need to be referred for psychiatry and therapy. He has little support in the area, and got an apartment where he plans to live alone, despite recommendations at the time of his last hospitalization that he returned home to [place] to live with parents. It is unclear why they did not follow this plan, and he will need a meeting with his father once he is less psychotic and able to tolerate it. -Move patient to a private room as soon as it is available, given his poor sleep, inappropriate interpersonal behavior, psychotic symptoms, and behavioral dyscontrol. -Increase risperidone to 1 mg every morning and every 5 p.m. and 2 mg at bedtime. Fasting labs from 12/21/2019 reviewed; glucose 106, FLP normal. Continue lamotrigine titration per standard titration schedule. 01/04 - Continue current medication regimen. Pt thoughts seem to be slightly more organized and goal directed, but he still is having considerable difficulty processing information. Pt receiving 1mg of risperidone qAM and 3mg qHS. - Continue MNPR at this time - When appropriate, will need to begin discharge planning by involving patient in decisions regarding where he will live, what supports are available, and where aftercare referrals will be made (2) Cannabis abuse: 01/03 -reviewed during recent hospitalization, reportedly patient cut back on his marijuana use in the week that he was out of the hospital. UDS -on second presentation. Continue to support abstinence from controlled substances, and provide psychoeducation about the risks of substance use. Inventory Assets Strengths: intelligent, family support, cut back/eliminated MJ Needs: increase insight into his condition, local supports and outpatient treatment. Risk Factors Assessment Male: Yes : No Do You Have Access To A Gun?: No Health Problems: No Mental Health Diagnoses: Yes Previous Psychiatric Hospitalization: Yes Hopelessness: Yes Smoker: No Protective Factors Assessment : No Responsible for Young Children: No Employed: No Supportive Family: Yes Good Rapport with Provider: No (No outpatient treatment) Interval History Identifying Information VINCENT DUQUE is a 19-year-old M, [employer] sophomore (withdrew for semester) who currently lives in a new apartment alone, was just discharged from on 12/24/19 after hospitalization for bipolar type I with psychosis, and was admitted on 01/02/20 22:07 on a 201 voluntary commitment for SI with a plan to jump off a parking garage. He was brought in by police on a 302, which was dispositioned in the ER when he signed in voluntarily. Chief Complaint "I still feel confused." Review of Systems Notes Constitutional: reports fatigue Cardiovascular: denied Respiratory: denied Gastrointestinal: denied Neurological: denied Psychiatric: denies symptoms other than stated above Total of at least 10 systems reviewed, pertinent positives as above and in HPI. Sleep Information Total Hours of Sleep: 8 Sleep Comments: . Meal Information Percent Meal Consumed - Breakfast: 100 Percent Meal Consumed - Lunch: 100 Percent Meal Consumed - Dinner: 100 Subjective Subjective Patient was seen & assessed and interval progress reviewed with nursing and social work. Staff report the patient has intermittently displayed poor boundaries with peers. In particular, is interactions with another manic male peer have been bizarre with poor boundaries and frequent redirection needed for both parties. Pt has been consistent with medications, parents are reportedly exploring options for outpatient psychiatric treatment. Pt was sleeping for most of the afternoon, and was permitted to do so. Pt was awake after lunch and agreed to meet with this provider. He stated he was planning to begin a list of questions to ask providers, but had not yet had the chance to start it. Pt states "I still feel confused." He admits he is also feeling tired, even after his nap today. Pt shares that he initially came to the ED for "suicidal tendencies." He states that he is still having intermittent SI and hopelessness, but that these events are happening with less frequency and less intensity. Pt admits to periods of worthlessness. He describes these thoughts as "unprofessional", but cannot explain what that means. Pt states "so, I guess I shouldn't ask about a discharge date." Pt was informed that there are still a number of essential steps that need completed before discharge would be considered. According to the patient, his discharge plans include living an apartment in [place] alone while he waits for his girlfriend - "then we will go sightseeing together, maybe drive a car around, I don't know." He states he has not thought about outpatient psychiatric services. Pt reports he would hope to live alone as "my parents are bad influences on me. The ask too many questions about my core being." Pt states "I could be happy and laughing on the outside, but on the inside be angry. They ask questions that break me down to my core, and I don't like that. But they are getting better." Pt denied other needs or concerns at this time. Physical Exam Psychiatric Orientation: alert, oriented x 3 and + guarded (superficially cooperative ) Apperance: appropriately dressed, appropriately groomed and appeared stated age Eye Contact: + poor eye contact (staring at floor as if avoiding direct eye contact) Motor Behavior: steady gait and station and no abnormal motor movements Speech: normal rate/rhythm/volume of speech (though almost robotic in nature) Affect: + flat affect (staring at floor, appearing blunted) Mood: + anxious mood Thought Process: + concrete thought process Pt without clear evidence of flight of ideas during conversation - at least in what he verbalizes during discussion. He still appears to be distracted/preoccupied - but superficial conversation is more organized. Thought Content: + preoccupation (with discharge ) and + hopelessness (admits to intermittent episodes of this) Suicidal Thoughts: + reports suicidal thoughts Admits to episodes of ongoing SI, though they are occurring less frequently and with less intensity. Homicidal Thoughts: denies homicidal thoughts Hallucinations: no auditory hallucinations and no visual hallucinations Cognition: attention grossly intact and language grossly intact Able to have a superficially appropriate conversation Insight: + impaired insight Judgement: + impaired judgement Vital Signs (Past 24 Hours) Last Vital Signs Temp 36.8 C 01/05/20 06:22 Pulse 105 H 01/05/20 06:23 Resp 16 01/05/20 06:22 BP 118/73 01/05/20 06:23 Pulse Ox 96 01/02/20 22:34 Results & Data ([facility]) Current Inpatient Medications Current Inpatient Medications: Current Inpatient Medications Acetaminophen (Acetaminophen 325 Mg Tab) 650 mg PO Q4H PRN PRN Reason: Headache or Minor Fever Stop: 02/01/20 22:06 Al Hydrox/Mg Hydrox/Simethicone (Aluminum/Magnesium Susp 30 Ml Udc) 30 ml PO Q4H PRN PRN Reason: GI Upset Stop: 02/01/20 22:06 Benztropine Mesylate (Benztropine Mesylate 1 Mg Tab) 1 mg PO BID PRN PRN Reason: Muscle Spasm Stop: 02/02/20 10:12 Bismuth Subsalicylate (Bismuth Subsalicylate Liqd 236 Ml) 15 ml PO PRN PRN PRN Reason: Loose Stool Stop: 02/01/20 22:06 Haloperidol (Haloperidol 5 Mg Tab) 5 mg PO Q4H PRN PRN Reason: Anxiety/Agitation Stop: 02/02/20 13:00 Last Admin: 01/05/20 09:27 Dose: 5 mg Documented by: Hydroxyzine HCl (Hydroxyzine Hcl 25 Mg Tab) 50 mg PO HSZ PRN PRN Reason: Insomnia Stop: 02/01/20 22:06 Last Admin: 01/04/20 22:10 Dose: 50 mg Documented by: Hydroxyzine HCl (Hydroxyzine Hcl 25 Mg Tab) 25 mg PO Q4H PRN PRN Reason: Anxiety Stop: 02/01/20 22:06 Lamotrigine (Lamotrigine 25 Mg Tab) 50 mg PO QAM WENCESLAO Stop: 02/03/20 08:59 Last Admin: 01/05/20 07:51 Dose: 50 mg Documented by: Lorazepam (Lorazepam 1 Mg Tab) 1 mg PO Q6H PRN PRN Reason: Anxiety/Agitation Stop: 02/02/20 13:00 Last Admin: 01/05/20 09:28 Dose: 1 mg Documented by: Magnesium Hydroxide (Magnesium Hydroxide Susp 30 Ml Udc) 30 ml PO DAILY PRN PRN Reason: Constipation Stop: 02/01/20 22:06 Risperidone (Risperidone 2 Mg Tablet) 2 mg PO HS WENCESLAO Stop: 02/02/20 21:59 Last Admin: 01/04/20 20:36 Dose: 2 mg Documented by: Risperidone (Risperidone 1 Mg Tablet) 1 mg PO BID WENCESLAO Stop: 02/03/20 16:59 Last Admin: 01/05/20 07:51 Dose: 1 mg Documented by: Sodium Chloride (Sodium Chloride 0.65% Na Soln 45 Ml ([place])) 1 - 2 sprays NA PRN PRN PRN Reason: Nasal Dryness/Congestion Stop: 02/01/20 22:06 Mental Health & Subst Abuse Tx Psychiatrist Name of Psychiatrist: [facility] Psychiatrist's Psychiatric Appointment Comment: [address], [place], [place] Therapist Name of Therapist: [facility] Therapist's Date of Therapist Appointment: 01/11/20 Therapy Appointment Comment: [facility] Health Information Managers Name of Health Information Managers: MIGUEL ANG[facility] [employer] [facility] Phone Number for Health Information Managers: [phone] Post Discharge Appointments Contact Information Discharge Discharge Address: [address] [place] [address]
[2020-01-05] MEDS: risperiDONE 2 MG TABLET PO SCH (20:34)
[2020-01-06] MEDS: LORazepam 1 MG TAB PO PRN ×2 (06:36→16:31)
[2020-01-06] MEDS: risperiDONE 1 MG TABLET PO SCH ×2 (09:14→20:24)
[2020-01-06] MEDS: lamoTRIgine 25 MG TAB PO SCH (09:14)
--- NOTE | 2020-01-06 09:48 | Psychiatric Progress Note ---
Date of Service January 06, 2020 Impression / Recommendations Impression Vincent is a 19 y/o male with bipolar type I who was discharged from our unit 12/24/2019 after hospitalization for psychosis determined to be related to bipolar disorder and possibly cannabis use, during which he was started on lamotrigine and risperidone, and re-presented to the ER 9 days later with suicidal ideation and a plan to jump off a parking garage, with prominent thought disorganization, paranoia, hallucinations, and poor insight and judgment. It is not clear if he has been complying with his medication. He is opposed to switching to BLAND. He is impulsive, labile, with poor insight and judgment. Although when he was discharge from our unit 2 weeks ago the plan was for him to return to [place] and lives with parents, he is since gotten an apartment in [place] and returned here, and has no outpatient treatment here. Inpatient treatment remains medically necessary due to the severity of his symptoms, inability to provide for his own basic needs without the care and assistance of others, and risk for suicide if discharged. (1) Bipolar 1 disorder: 01/02 - The patient was admitted to the [facility]) on q15 min checks (behavioral with suicide precautions) for safety. The patient will participate in group, recreational, and milieu therapies and will be offered additional individual and family sessions as clinically appropriate. He was scheduled to increase his Lamictal on 01/04, will titrate tomorrow given good tolerability and ongoing suzanne. Titrate Risperdal for ease of dosing and patient prefers split dosing given daytime symptoms, will give 1 mg in am and 2 mg hs and monitor. No evidence of EPS. 01/03 -continue voluntary hospitalization, consider the need for conversion to an involuntary 302 commitment if patient persists in requests to leave, as he remains psychotic and is in a mixed state with suicidal ideation. He has no local outpatient treatment, and will need to be referred for psychiatry and therapy. He has little support in the area, and got an apartment where he plans to live alone, despite recommendations at the time of his last hospitalization that he returned home to [place] to live with parents. It is unclear why they did not follow this plan, and he will need a meeting with his father once he is less psychotic and able to tolerate it. -Move patient to a private room as soon as it is available, given his poor sleep, inappropriate interpersonal behavior, psychotic symptoms, and behavioral dyscontrol. -Increase risperidone to 1 mg every morning and every 5 p.m. and 2 mg at bedtime. Fasting labs from 12/21/2019 reviewed; glucose 106, FLP normal. Continue lamotrigine titration per standard titration schedule. 01/04 - Continue current medication regimen. Pt thoughts seem to be slightly more organized and goal directed, but he still is having considerable difficulty processing information. Pt receiving 1mg of risperidone qAM and 3mg qHS. - Continue MNPR at this time - When appropriate, will need to begin discharge planning by involving patient in decisions regarding where he will live, what supports are available, and where aftercare referrals will be made 01/05 - Pt requesting, and would benefit from, titration of risperidone - will order for 1mg qAM and 4mg qHS. Continue lamotrigine 50mg qAM. - Pt continues to have flight of ideas and ideas of reference. He is better able to articulate these ideas, but is still very unstable, labile, and unpredictable. - Support meeting scheduled with patient's father to discuss discharge planning and provide psychoeducation. Recommendations from our team are that patient return home with parental supervision and that he be enrolled in more intensive outpatient psychiatric programs back home. (2) Cannabis abuse: 01/03 -reviewed during recent hospitalization, reportedly patient cut back on his marijuana use in the week that he was out of the hospital. UDS -on second presentation. Continue to support abstinence from controlled substances, and provide psychoeducation about the risks of substance use. Inventory Assets Strengths: intelligent, family support, cut back/eliminated MJ Needs: increase insight into his condition, local supports and outpatient treatment. Risk Factors Assessment Male: Yes : No Do You Have Access To A Gun?: No Health Problems: No Mental Health Diagnoses: Yes Previous Psychiatric Hospitalization: Yes Hopelessness: Yes Smoker: No Protective Factors Assessment : No Responsible for Young Children: No Employed: No Supportive Family: Yes Good Rapport with Provider: No (No outpatient treatment) Interval History Identifying Information VINCENT DUQUE is a 19-year-old M, [employer] sophomore (withdrew for semester) who currently lives in a new apartment alone, was just discharged from on 12/24/19 after hospitalization for bipolar type I with psychosis, and was admitted on 09/19/20 22:07 on a 201 voluntary commitment for SI with a plan to jump off a parking garage. He was brought in by police on a 302, which was dispositioned in the ER when he signed in voluntarily. Chief Complaint "My mood is better, but not God-mode." Review of Systems Notes Constitutional: reports ongoing daytime sedation Cardiovascular: denied Respiratory: denied Gastrointestinal: denied Neurological: denied Psychiatric: denies symptoms other than stated above Total of at least 10 systems reviewed, pertinent positives as above and in HPI. Sleep Information Total Hours of Sleep: 8 Sleep Comments: pt appeared to sleep 2.5 hrs during evening shift. pt with PATTY @0545 and thereafter. pt on q-15 minute checks Meal Information Percent Meal Consumed - Breakfast: 90 Percent Meal Consumed - Lunch: 75 Percent Meal Consumed - Dinner: 100 Subjective Subjective Patient was seen & assessed and interval progress reviewed with treatment team. Staff report the patient requested medications yesterday for "noises" in his head. He slept for a good part of the day yesterday. Will attempt to schedule a family meeting with the patient and his father to begin discussing discharge planning. Pt was seen today to assess progress since admission. Pt admits that he is feeling tired, as this provider found him walking the hallways and appearing very sedated. Pt states that otherwise he believes he is improving. He states "my mood is better, but not God-mode." Pt perceives this as a good thing, stating "God-mode" is "hyper-yeny, hyper-realism, God-complex. Believing that you're better than everyone, or that you control everyone." When asked about his thoughts on the times he is in "God-mode", the patient quickly states "regrets. Regrets all the way through. I hate the mistakes I make and the things I do." Pt feels his mood is more stable and admits his thoughts are "spaced out", but more clear. He denies racing thoughts and feels he is better able to process conversations. We began discussing other topics, when patient suddenly inquired "so, do you think I could get more medication? I think I need a higher dose." This provider inquired as to what patient was hoping medication would help with. He stated "I'm still hearing voices and thinking people are having conversations with me. I need to stop perceiving that people are trying to talk to me, and just understand that people talk to people." It was reported by our recreational therapist that the patient participated in community meeting by responding to every question asked by the therapist or the patient's peers, whether directed to him or not. Pt does admit that the voices are quieter, but states "they are going on in the background 05/11." He states that they are "human voices, and I need to see them as human but right now I want to see them as balls of light." Pt was rather tangential for the remainder of our conversation. He related bipolar disorder to "kind of like being a kid. Being indecisive." He then randomly inquired, "is being like a psychopath a positive or a negative thing?" Pt was asked why this question is coming to his mind. He states "sometimes I'm like a psychopath, I'm dishonest." He did admit that dishonesty was the only perceived similarity between his actions and the pe rceived actions of a psychopath. Pt was offered reassurance, and then inquired "ok, so those are not things I should work on being like?" Pt did admit to this provider that he feels as though "I'm in control of decisions that are not my decisions." When asked to explain this, the patient admitted that he believes his mind is responsible for things like closing doors or people walking past his room. Pt suddenly expresses concern that these things would mean he is "a schizophrenic." We had a basic discussion about differential diagnoses, and patient was reassured that his current medication regimen is in line with recommendations for both suzanne related to bipolar disorder as well as schizophrenia. As this provider leaves the room, the patient states "I guess I just feel like we need to stay away from softer medications and go with harder stuff, the heavier stuff." Pt was agreeable with continuing to titrate his risperidone. He denied other needs at this time. Physical Exam Psychiatric Orientation: alert and + guarded (superficially cooperative ) Apperance: appropriately dressed, appropriately groomed and appeared stated age Eye Contact: + poor eye contact (most often staring at the floor) Motor Behavior: no abnormal motor movements and + psychomotor retardation (mildly) Speech: normal rate/rhythm/volume of speech Affect: + flat affect (appearing blunted/sedated) Mood: no depressed mood ("better, but not God-mode") Thought Process: + tangential thought process and + flight of ideas Thought Content: + preoccupation (with discharge), + delusions and + ideas of reference; no hopelessness and no worthlessness Suicidal Thoughts: denies suicidal thoughts Homicidal Thoughts: denies homicidal thoughts Hallucinations: + auditory hallucinations; no visual hallucinations Cognition: attention grossly intact and language grossly intact Insight: + impaired insight Judgement: + impaired judgement Vital Signs (Past 24 Hours) Last Vital Signs Temp 36.9 C 01/06/20 06:26 Pulse 112 H 01/06/20 06:26 Resp 18 01/06/20 06:26 BP 126/79 01/06/20 06:26 Pulse Ox 96 01/02/20 22:34 [facility] & [facility] Current Inpatient Medications Current Inpatient Medications: Current Inpatient Medications Acetaminophen (Acetaminophen 325 Mg Tab) 650 mg PO Q4H PRN PRN Reason: Headache or Minor Fever Stop: 02/01/20 22:06 Al Hydrox/Mg Hydrox/Simethicone (Aluminum/Magnesium Susp 30 Ml Udc) 30 ml PO Q4H PRN PRN Reason: GI Upset Stop: 02/01/20 22:06 Benztropine Mesylate (Benztropine Mesylate 1 Mg Tab) 1 mg PO BID PRN PRN Reason: Muscle Spasm Stop: 02/02/20 10:12 Bismuth Subsalicylate (Bismuth Subsalicylate Liqd 236 Ml) 15 ml PO PRN PRN PRN Reason: Loose Stool Stop: 02/01/20 22:06 Haloperidol (Haloperidol 5 Mg Tab) 5 mg PO Q4H PRN PRN Reason: Anxiety/Agitation Stop: 02/02/20 13:00 Last Admin: 01/05/20 09:27 Dose: 5 mg Documented by: Hydroxyzine HCl (Hydroxyzine Hcl 25 Mg Tab) 50 mg PO HSZ PRN PRN Reason: Insomnia Stop: 02/01/20 22:06 Last Admin: 01/04/20 22:10 Dose: 50 mg Documented by: Hydroxyzine HCl (Hydroxyzine Hcl 25 Mg Tab) 25 mg PO Q4H PRN PRN Reason: Anxiety Stop: 02/01/20 22:06 Lamotrigine (Lamotrigine 25 Mg Tab) 50 mg PO QAM WENCESLAO Stop: 02/03/20 08:59 Last Admin: 01/06/20 09:14 Dose: 50 mg Documented by: Lorazepam (Lorazepam 1 Mg Tab) 1 mg PO Q6H PRN PRN Reason: Anxiety/Agitation Stop: 02/02/20 13:00 Last Admin: 01/06/20 06:36 Dose: 1 mg Documented by: Magnesium Hydroxide (Magnesium Hydroxide Susp 30 Ml Udc) 30 ml PO DAILY PRN PRN Reason: Constipation Stop: 02/01/20 22:06 Risperidone (Risperidone 2 Mg Tablet) 2 mg PO HS WENCESLAO Stop: 02/02/20 21:59 Last Admin: 01/05/20 20:34 Dose: 2 mg Documented by: Risperidone (Risperidone 1 Mg Tablet) 1 mg PO BID WENCSELAO Stop: 02/03/20 16:59 Last Admin: 01/06/20 09:14 Dose: 1 mg Documented by: Sodium Chloride (Sodium Chloride 0.65% Na Soln 45 Ml ([place])) 1 - 2 sprays NA PRN PRN PRN Reason: Nasal Dryness/Congestion Stop: 02/01/20 22:06 Mental Health & Subst Abuse Tx Psychiatrist Name of Psychiatrist: [facility] Date of Appointment with Psychiatrist: 01/12/20 Time of Appointment with Psychiatrist: 12:40 p.m. Psychiatric Appointment Comment: [address] [place] [address] [address], [address], [place], [place] Therapist Name of Therapist: [employer] [facility] Date of Therapist Appointment: 01/11/20 Therapy Appointment Comment: [facility] Name of Store Stock Associate: [facility] Phone Number for Store Stock Associate: [phone] Post Discharge Appointments Contact Information Discharge Discharge Address: [address] [place] [id number]
[2020-01-06] MEDS: haloperidoL 5 MG TAB PO PRN (18:40)
[2020-01-06] MEDS: risperiDONE 3 MG TABLET PO SCH (20:26)
[2020-01-07] MEDS: risperiDONE 1 MG TABLET PO SCH ×2 (08:01→20:30)
[2020-01-07] MEDS: lamoTRIgine 25 MG TAB PO SCH (08:01)
[2020-01-07] MEDS: LORazepam 1 MG TAB PO PRN (09:15)
--- NOTE | 2020-01-07 09:59 | Psychiatric Progress Note ---
Date of Service January 07, 2020 Impression / Recommendations Ewa Kaur is a 19 y/o male with bipolar type I who was discharged from our unit 12/24/2019 after hospitalization for psychosis determined to be related to bipolar disorder and possibly cannabis use, during which he was started on lamotrigine and risperidone, and re-presented to the ER 9 days later with suicidal ideation and a plan to jump off a parking garage, with prominent thought disorganization, paranoia, hallucinations, and poor insight and judgment. It is not clear if he has been complying with his medication. He is opposed to switching to BLAND. He is impulsive, labile, with poor insight and judgment. Although when he was discharge from our unit 2 weeks ago the plan was for him to return to [place] and live with parents, he is since gotten an apartment in [place] and returned here, and has no outpatient treatment here. Reviewed with both patient and his parents that recommendation from our unit is that patient return home to live with his parents and that he be enrolled in an IOP/PHP to provide much needed outpatient support. Inpatient treatment remains medically necessary due to the severity of his symptoms, inability to provide for his own basic needs without the care and assistance of others, and risk for suicide if discharged. (1) Bipolar 1 disorder: 01/02 - The patient was admitted to the [facility] ([facility] inpatient mental health unit) on q15 min checks (behavioral with suicide precautions) for safety. The patient will participate in group, recreational, and milieu therapies and will be offered additional individual and family sessions as clinically appropriate. He was scheduled to increase his Lamictal on 01/04, will titrate tomorrow given good tolerability and ongoing suzanne. Titrate Risperdal for ease of dosing and patient prefers split dosing given daytime symptoms, will give 1 mg in am and 2 mg hs and monitor. No evidence of EPS. 01/03 -continue voluntary hospitalization, consider the need for conversion to an involuntary 302 commitment if patient persists in requests to leave, as he remains psychotic and is in a mixed state with suicidal ideation. He has no local outpatient treatment, and will need to be referred for psychiatry and therapy. He has little support in the area, and got an apartment where he plans to live alone, despite recommendations at the time of his last hospitalization that he returned home to [place] to live with parents. It is unclear why they did not follow this plan, and he will need a meeting with his father once he is less psychotic and able to tolerate it. -Move patient to a private room as soon as it is available, given his poor sleep, inappropriate interpersonal behavior, psychotic symptoms, and behavioral dyscontrol. -Increase risperidone to 1 mg every morning and every 5 p.m. and 2 mg at bedtime. Fasting labs from 12/21/2019 reviewed; glucose 106, FLP normal. Continue lamotrigine titration per standard titration schedule. 01/04 - Continue current medication regimen. Pt thoughts seem to be slightly more organized and goal directed, but he still is having considerable difficulty processing information. Pt receiving 1mg of risperidone qAM and 3mg qHS. - Continue MNPR at this time - When appropriate, will need to begin discharge planning by involving patient in decisions regarding where he will live, what supports are available, and where aftercare referrals will be made 01/05 - Pt requesting, and would benefit from, titration of risperidone - will order for 1mg qAM and 4mg qHS. Continue lamotrigine 50mg qAM. - Pt continues to have flight of ideas and ideas of reference. He is better able to articulate these ideas, but is still very unstable, labile, and unpredictable. - Support meeting scheduled with patient's father to discuss discharge planning and provide psychoeducation. Recommendations from our team are that patient return home with parental supervision and that he be enrolled in more intensive outpatient psychiatric programs back home. 01/06 - Reviewed recommendations for more intensive outpatient support with patient, who at this time is reporting understanding of recommendation that he return home with his parents. Reviewed this with parents as well, who are now supportive of patient being referred to an [facility] and returning home to [place], [place]. - Family meeting today with both mother and father participating via phone - Continue current medication regimen with titration of risperidone as indicated. - Pt continues to be disorganized and delusional with flight of ideas. He is able to demonstrate some insight, admitting that he does not like feeling this way. He continues to request "more" and "stronger" medication. - This provider did discuss option to discontinue lamotrigine and replace with lithium - patient was open to conversation, but very clearly articulated that he is not interested in frequent blood draws. He reported "let's go to the max of Risperdal, and if that doesn't work then we can talk about blood draws." - Pt continues to require inpatient psychiatric treatment; will continue MNPR to permit for reduced stimulation, as patient admits his condition is worsened when interacting with peers who are also demonstrating poor boundaries. (2) Cannabis abuse: 01/03 -reviewed during recent hospitalization, reportedly patient cut back on his marijuana use in the week that he was out of the hospital. UDS -on second presentation. Continue to support abstinence from controlled substances, and provide psychoeducation about the risks of substance use. Inventory Assets Strengths: intelligent, family support, cut back/eliminated MJ Needs: increase insight into his condition, local supports and outpatient treatment. Risk Factors Assessment Male: Yes : No Do You Have Access To A Gun?: No Health Problems: No Mental Health Diagnoses: Yes Previous Psychiatric Hospitalization: Yes Hopelessness: Yes Smoker: No Protective Factors Assessment : No Responsible for Young Children: No Employed: No Supportive Family: Yes Good Rapport with Provider: No (No outpatient treatment) Interval History Identifying Information WINTER DUQUE is a 19-year-old M, [employer] sophomore (withdrew for semester) who currently lives in a new apartment alone, was just discharged from on 12/24/19 after hospitalization for bipolar type I with psychosis, and was admitted on 01/02/20 22:07 on a 201 voluntary commitment for SI with a plan to jump off a parking garage. He was brought in by police on a 302, which was dispositioned in the ER when he signed in voluntarily. Chief Complaint "I'm good-jared." Review of Systems Notes Constitutional: denied Cardiovascular: denied Respiratory: denied Gastrointestinal: denied Neurological: denied Psychiatric: denies symptoms other than stated above Total of at least 10 systems reviewed, pertinent positives as above and in HPI. Sleep Information Total Hours of Sleep: 8.25 Sleep Comments: pt appeared to sleep 2.5 hrs during evening shift. pt with PATTY @0545 and thereafter. pt on q-15 minute checks Meal Information Percent Meal Consumed - Breakfast: 90 Percent Meal Consumed - Lunch: 100 Percent Meal Consumed - Dinner: 100 Subjective Subjective Patient was seen & assessed and interval progress reviewed with nursing and social work. Staff report the patient continues to demonstrate disorganized and delusional through processes. He remains highly focused on discharge. Pt is scheduled for a meeting with his parents via phone this afternoon to discuss outpatient recommendations and his need for a higher level of support after discharge. Pt was seen this morning to review this recommendations and assess progress since admission. He tells this provider he is "good-jared" today. He states "I'm always better, the day after yesterday is always better." Pt reports that overall he feels he is improving, continuing to mention that he no longer feels he has a "God-complex." Pt does pull out a list of questions on a sheet of paper and begins discussing. Pt starts with "should I tell people about my disease?" We discussed that open and honest communication would allow his supports to know his needs and better support him. He states "and this isn't a question, I know that I need to take my medications consistently for them to work." We reviewed this, and discussed ways that patient can organize his pills and set reminders. Pt continues to answer in the affirmative when asked about auditory hallucinations/voices. He states "I don't know if these people are me or them." Pt was asked for an example. He states, "I was talking to the sorin in the K-9 shirt and I couldn't tell if I was having a conversation with him or if it was me pretending to be him." He is able to recognize that "I don't think that sorin is good for me, he's making me worse." We did discuss staff's observation that the patient and one of his peers do tend to be destabilizing each other. Pt was offered that staff could attempt to intervene in conversations, and encouraged patient that he could always walk away from the situation or go to his room if he felt overwhelmed. Pt then abruptly changes the conversation, sharing that he believes there are "hidden meanings in ever ything." He shares that he believes the bubbles in his soda have a special meaning, "symbolic." Pt is able to recognize that these constant thoughts are "not fun, they are exhausting", but also states that "I would still like to be able to do that though." Pt states this is because he is on a journey for "self-discovery." This provider reviewed recommendations for more intensive outpatient services than are presently arranged for the patient, as he and his family were supporting patient remaining in [place] with limited psychiatric resources. We discussed recommendation that patient return home and begin an IOP. Pt admits he is sad that he is not in school and hopes to return. We discussed how he believed he would do if he were in school, and he admitted "not good." Pt was encouraged to spend some intentional time focusing on his mental health, which would make him more likely to be able to return to school in the future should he desire. We discussed medication options, as patient continues to state he wants "more" and "stronger" medications. This provider began to introduce the idea of [place], however, patient was very concerned about the need to periodically test his drug levels. Pt stated "let's go to the max of Risperdal, and if that doesn't work then we can talk about blood draws." He denied other needs or concerns at this time. This provider did participate in the first portion of the patient's phone meeting with parents. Education on the diagnosis was offered and recommendation that parents encourage patient to return home, where he can be enrolled in an IOP to better support psychiatric stability and provide additional support after discharge. Concerns were expressed regarding limited treatment options in the area that would meet the level of patient's current needs. We also discussed concern that without adequate outpatient support, the patient continues to be at elevated risk of medication noncompliance, mood instability, return of psychotic/manic symptoms, frequent hospitalizations, potential harm to self and/or others (whether intentional or not), and risk of legal charges and possibly serious harm/. Parents admitted to concern for the patient and ultimately stated they would support our recommendations. They did request names of IOPs in the [facility], and stated they would begin calling. Social work stated we would also be assisting with referrals and coordinating these supports. Education was provided on IOPs/PHPs. They did express concern that patient may not be interested due to his girlfriend returning from [facility] in the next few weeks. We reviewed that patient should be supported in focusing on his mental health, and that hopefully girlfriend would also be supportive in this process. Education and reassurance was offered to parents. They were updated on diagnosis, current condition, and medication regimen. This provider did step out of the meeting as the patient was brought back. Physical Exam Psychiatric Orientation: alert and + guarded (superficially cooperative ) Apperance: appropriately dressed, appropriately groomed and appeared stated age Eye Contact: + fair eye contact (often staring at the floor ) Motor Behavior: steady gait and station and no abnormal motor movements Speech: normal rate/rhythm/volume of speech (monotone) Affect: + flat affect and + constricted affect Mood: + depressed mood and + anxious mood Thought Process: + circumstantial thought process and + flight of ideas; + thought process not clear or coherent Thought Content: + preoccupation (with discharge ), + delusions and + ideas of reference Suicidal Thoughts: denies suicidal thoughts Homicidal Thoughts: denies homicidal thoughts Hallucinations: + auditory hallucinations (answers in the affirmative, though description is unclear); no visual hallucinations Pt continues to report that he is hearing voices, but then states "I'm not sure if I'm talking to other people, or to myself." He has difficulty clearly describing his experiences. Cognition: attention grossly intact (improved overall, but still very distractable at times) and language grossly intact Insight: + impaired insight Judgement: + impaired judgement Vital Signs (Past 24 Hours) Last Vital Signs Temp 36.8 C 01/07/20 06:18 Pulse 121 H 01/07/20 06:18 Resp 16 01/07/20 06:18 BP 121/81 01/07/20 06:18 Pulse Ox 96 01/02/20 22:34 Results & Data ([facility]) Current Inpatient Medications Current Inpatient Medications: Current Inpatient Medications Acetaminophen (Acetaminophen 325 Mg Tab) 650 mg PO Q4H PRN PRN Reason: Headache or Minor Fever Stop: 02/01/20 22:06 Al Hydrox/Mg Hydrox/Simethicone (Aluminum/Magnesium Susp 30 Ml Udc) 30 ml PO Q4H PRN PRN Reason: GI Upset Stop: 02/01/20 22:06 Benztropine Mesylate (Benztropine Mesylate 1 Mg Tab) 1 mg PO BID PRN PRN Reason: Muscle Spasm Stop: 02/02/20 10:12 Bismuth Subsalicylate (Bismuth Subsalicylate Liqd 236 Ml) 15 ml PO PRN PRN PRN Reason: Loose Stool Stop: 02/01/20 22:06 Haloperidol (Haloperidol 5 Mg Tab) 5 mg PO Q4H PRN PRN Reason: Anxiety/Agitation Stop: 02/02/20 13:00 Last Admin: 01/06/20 18:40 Dose: 5 mg Documented by: Hydroxyzine HCl (Hydroxyzine Hcl 25 Mg Tab) 50 mg PO HSZ PRN PRN Reason: Insomnia Stop: 02/01/20 22:06 Last Admin: 01/04/20 22:10 Dose: 50 mg Documented by: Hydroxyzine HCl (Hydroxyzine Hcl 25 Mg Tab) 25 mg PO Q4H PRN PRN Reason: Anxiety Stop: 02/01/20 22:06 Lamotrigine (Lamotrigine 25 Mg Tab) 50 mg PO QAM WENCESLAO Stop: 02/03/20 08:59 Last Admin: 01/07/20 08:01 Dose: 50 mg Documented by: Lorazepam (Lorazepam 1 Mg Tab) 1 mg PO Q6H PRN PRN Reason: Anxiety/Agitation Stop: 02/02/20 13:00 Last Admin: 01/07/20 09:15 Dose: 1 mg Documented by: Magnesium Hydroxide (Magnesium Hydroxide Susp 30 Ml Udc) 30 ml PO DAILY PRN PRN Reason: Constipation Stop: 02/01/20 22:06 Risperidone (Risperidone 1 Mg Tablet) 1 mg PO BID WENCESLAO Stop: 02/03/20 16:59 Last Admin: 01/07/20 08:01 Dose: 1 mg Documented by: Risperidone (Risperidone 3 Mg Tablet) 3 mg PO HS WENCESLAO Stop: 02/05/20 21:59 Last Admin: 01/06/20 20:26 Dose: 3 mg Documented by: Sodium Chloride (Sodium Chloride 0.65% Na Soln 45 Ml ([place])) 1 - 2 sprays NA PRN PRN PRN Reason: Nasal Dryness/Congestion Stop: 02/01/20 22:06 Mental Health & Subst Abuse Tx Psychiatrist Name of Psychiatrist: [facility] Psych[facility]'s Date of Appointment with Psychiatrist: 01/12/20 Time of Appointment with Psychiatrist: 12:40 p.m. Psychiatric Appointment Comment: [address] [place] [address], [facility], [address], [place], [place] Therapist Name of Therapist: [employer] [facility]'s Date of Therapist Appointment: 01/15/20 Time of Therapist Appointment: 8:00 a.m. Therapy Appointment Comment: Please utilize the Zoom instruction sheet Underground Truck Operator Name of Underground Truck Operator: [facility] Phone Number for Underground Truck Operator: [phone] Post Discharge Appointments Contact Information Discharge Discharge Address: [address] [place], [place] [id number]
[2020-01-07] MEDS: haloperidoL 5 MG TAB PO PRN (12:51)
[2020-01-07] MEDS: risperiDONE 3 MG TABLET PO SCH (20:30)
[2020-01-08] MEDS: lamoTRIgine 25 MG TAB PO SCH (09:01)
[2020-01-08] MEDS: risperiDONE 1 MG TABLET PO SCH ×2 (09:02→17:24)
--- NOTE | 2020-01-08 18:49 | Psychiatric Progress Note ---
Date of Service January 08, 2020 Impression / Recommendations Ewa Kaur is a 19 y/o male with bipolar type I who was discharged from our unit 12/24/2019 after hospitalization for psychosis determined to be related to bipolar disorder and possibly cannabis use, during which he was started on lamotrigine and risperidone, and re-presented to the ER 9 days later with suicidal ideation and a plan to jump off a parking garage, with prominent thought disorganization, paranoia, hallucinations, and poor insight and judgment. It is not clear if he has been complying with his medication. He is opposed to switching to BLAND. He is impulsive, labile, with poor insight and judgment. Although when he was discharge from our unit 2 weeks ago the plan was for him to return to [place] and live with parents, he is since gotten an apartment in [place] and returned here, and has no outpatient treatment here. Reviewed with both patient and his parents that recommendation from our unit is that patient return home to live with his parents and that he be enrolled in an IOP/PHP to provide much needed outpatient support. Inpatient treatment remains medically necessary due to the severity of his symptoms, inability to provide for his own basic needs without the care and assistance of others, and risk for suicide if discharged. 01/08/20 update. The patient appears to be responding favorably to the psychiatric medications that have been restarted, although he was still showing fairly active manic symptoms as recently as yesterday.. However, our ongoing concern is that he seems to have a superficial understanding of his illness and demonstrated similar "insight" at the time of his recent previous psychiatric hospitalizationonly to quickly sabotage the aftercare plan (return to [place] with his parents), stop his medicines, and then having active thoughts of jumping out of a tall building at [facility] in order to commit suicide. For that reason, we feel strongly that we need to observe a sustained period of psychiatric stability, during which time we will focus on the patient's apparent difficulty accepting the nature of his psychiatric illness and the risks associated with nonadherence, as well as attempting to maintain recovery with a limited local support network. There is also not entirely clear that his plan for his girlfriend to return to [place] "in about 3 weeks" is a fully formed plan, and the patient seems to believe that his goal of sustained improvement following discharge will be achieved with the active support of his girlfrienda woman with whom we had not spoken. (1) Bipolar 1 disorder: 01/02 - The patient was admitted to the [facility] ([facility]) on q15 min checks (behavioral with suicide precautions) for safety. The patient will participate in group, recreational, and milieu therapies and will be offered additional individual and family sessions as clinically appropriate. He was scheduled to increase his Lamictal on 01/04, will titrate tomorrow given good tolerability and ongoing suzanne. Titrate Risperdal for ease of dosing and patient prefers split dosing given daytime symptoms, will give 1 mg in am and 2 mg hs and monitor. No evidence of EPS. 01/03 -continue voluntary hospitalization, consider the need for conversion to an involuntary 302 commitment if patient persists in requests to leave, as he remains psychotic and is in a mixed state with suicidal ideation. He has no local outpatient treatment, and will need to be referred for psychiatry and therapy. He has little support in the area, and got an apartment where he plans to live alone, despite recommendations at the time of his last hospitalization that he returned home to [place] to live with parents. It is unclear why they did not follow this plan, and he will need a meeting with his father once he is less psychotic and able to tolerate it. -Move patient to a private room as soon as it is available, given his poor sleep, inappropriate interpersonal behavior, psychotic symptoms, and behavioral dyscontrol. -Increase risperidone to 1 mg every morning and every 5 p.m. and 2 mg at bedtime. Fasting labs from 12/21/2019 reviewed; glucose 106, FLP normal. Continue lamotrigine titration per standard titration schedule. 01/04 - Continue current medication regimen. Pt thoughts seem to be slightly more organized and goal directed, but he still is having considerable difficulty processing information. Pt receiving 1mg of risperidone qAM and 3mg qHS. - Continue MNPR at this time - When appropriate, will need to begin discharge planning by involving patient in decisions regarding where he will live, what supports are available, and where aftercare referrals will be made 01/05 - Pt requesting, and would benefit from, titration of risperidone - will order for 1mg qAM and 4mg qHS. Continue lamotrigine 50mg qAM. - Pt continues to have flight of ideas and ideas of reference. He is better able to articulate these ideas, but is still very unstable, labile, and unpredi ctable. - Support meeting scheduled with patient's father to discuss discharge planning and provide psychoeducation. Recommendations from our team are that patient return home with parental supervision and that he be enrolled in more intensive outpatient psychiatric programs back home. 01/06 - Reviewed recommendations for more intensive outpatient support with patient, who at this time is reporting understanding of recommendation that he return home with his parents. Reviewed this with parents as well, who are now supportive of patient being referred to an IOP and returning home to [place], [place]. - Family meeting today with both mother and father participating via phone - Continue current medication regimen with titration of risperidone as indicated. - Pt continues to be disorganized and delusional with flight of ideas. He is able to demonstrate some insight, admitting that he does not like feeling this way. He continues to request "more" and "stronger" medication. - This provider did discuss option to discontinue lamotrigine and replace with lithium - patient was open to conversation, but very clearly articulated that he is not interested in frequent blood draws. He reported "let's go to the max of Risperdal, and if that doesn't work then we can talk about blood draws." - Pt continues to require inpatient psychiatric treatment; will continue MNPR to permit for reduced stimulation, as patient admits his condition is worsened when interacting with peers who are also demonstrating poor boundaries. 01/07 -Today, the patient does not exhibit any delusional material in his thought content, and his thought processes, while sometimes somewhat tangential or idiosyncratic, are not consistent with the finding of flight of ideas. His speech is no longer pressured, and he does say that he feels that his current medications are reasonably well-tolerated and he can tell that he is "coming down" and getting better. The plan is to continue his current medications and titrate lamotrigine, which recent studies have indicated may be even more effective than lithium carbonate in treating bipolar disorderand often with fewer negative side effects. -Patient does note that risperidone is somewhat sedating, but he feels he can tolerate it and he also notes that it helps him sleep at night. -The patient understands the thinking behind the plan for him to temporarily return to the home of his parents and [place], [place]. However, he says that he feels that he is at this point "too Americanized," while his parents seem to view the family as a "corporation that is run by a top down management style." He says that he realizes that his parents, with every good intention, will attempt to direct every aspect of his life while seeking to guarantee "what is best for [him]," even if it is a matter that is relatively minor and seemingly unrelated to a mental illness. In other words, he says that he knows his parents well enough to know that they will use his mental illness as an excuse for tightening there control of his every day life. He mentions, for example, that his parents would never consent to allow him to spend the night with his girlfriend, and would be likely to say that that would not be good for his "mental health" even though the real reason would be cultural. (2) Cannabis abuse: 01/03 -reviewed during recent hospitalization, reportedly patient cut back on his marijuana use in the week that he was out of the hospital. UDS -on second presentation. Continue to support abstinence from controlled substances, and provide psychoeducation about the risks of substance use. 01/07 -abstinence from drugs of abuse, including marijuana, was reinforced today through patient education. Inventory Assets Strengths: intelligent, family support, cut back/eliminated MJ Needs: increase insight into his condition, local supports and outpatient treatment. Risk Factors Assessment Male: Yes : No Do You Have Access To A Gun?: No Health Problems: No Mental Health Diagnoses: Yes Previous Psychiatric Hospitalization: Yes Hopelessness: Yes Smoker: No Protective Factors Assessment : No Responsible for Young Children: No Employed: No Supportive Family: Yes Good Rapport with Provider: No (No outpatient treatment) Interval History Identifying Information WINTER DUQUE is a 19-year-old M, [employer] sophomore (withdrew for semester) who currshameka engel lives in a new apartment alone, was just discharged from on 12/24/19 after hospitalization for bipolar type I with psychosis, and was admitted on 01/02/20 22:07 on a 201 voluntary commitment for SI with a plan to jump off a parking garage. He was brought in by police on a 302, which was dispositioned in the ER when he signed in voluntarily. Chief Complaint " I screwed up and ended up having to come back.". Review of Systems Sleep Information Total Hours of Sleep: 7 Sleep Comments: pt appeared to sleep 2.5 hrs during evening shift. pt with PATTY @0545 and thereafter. pt on q-15 minute checks Meal Information Percent Meal Consumed - Breakfast: 80 Percent Meal Consumed - Lunch: 100 Percent Meal Consumed - Dinner: 75 Subjective Subjective Patient was seen & assessed and interval progress reviewed with treatment team. I met with the patient individually in order to assess his current mental status, evaluate his response to treatment, make any necessary changes in the patient's treatment regimen in conjunction with the patient; and address issues, questions and concerns that may arise. As I had been active in the patient's treatment during his recent previous psychiatric hospitalization at [facility], I began by asking him to tell me, in his own words, what he thought had gone wrong following his discharge from the previous hospitalization. I reminded the patient that, the time of discharge, the plan had been for him to return to [place], [place] with his parents and enter treatment there, with the understanding that his parents role would be to provide him with support and encouragement. Today, the patient acknowledges christian t he had deliberately pretended to agree with the discharge planning, which had been for him to return to [place] with his parents and come instead, managed to convince his father to rent an apartment for him in [place]. He explains that he had 2 reasons for doing this. The first reason, and he says the "main" reason" is that he feels that he cannot comfortably live with his parents, even temporarily. He notes that he loves his parents, but he says that his family is like a corporation that has a "top down" structure, and he attributes this in part to the fact that he has been Americanized, while his parents are more heavily a part of what he refers to as "Irish parenting." As he had the past, he notes that, as a child, "Irish parenting "involves frequently beating children, putting pressures on them, watching them constantly, and actively shaping their behaviors through an insistence nonconformity and adherence to the parent's expectations. I was able to share with him that when I had spoken to his mother and father I had definitely sense that they were concerned, loving, and wanted to do what ever it was best for him. But I also noted that I could imagine that he given his recurrent threats of suicide and active psychiatric symptomatology they were understandably eager to be protectivewhich, certainly, can be experienced as controlling or "top down." The other reason that he wants to stay in [place] is that he expects his girlfriend, a woman who is currently temporarily living in [facility], to return to [place] in approximately 3 weeks, and he is hoping that although her family is unlikely to allow them to live together, he will essentially be able to have frequent and lengthy contact with her. I reminded the patient that during his p revious psychiatric hospitalization he had told me that he was having thoughts of suicide because he had broken up with his girlfriend and that she had "moved" to [facility]." The patient acknowledged that he had said that and had believed that at the time, but notes that through telephone calls they have reconciled and he is eager to be able to live in the same town as she (namely [place]). The girlfriend will attend [facility] [employer]. Within the above context, the patient stated clearly that he does not wish to return to [place], [place] with his parents; and he states rather categorically that he simply will not return to [place]. I ask him what he would do if his parents refused to pay his college tuition and refused to pay for his apartment and other living expenses in [place], and he is said, "already thought about that. I get a job and support myself." I then said, "that might be harder than you think. Apartments are expensive here, and many of the available jobs are in the food checkers and cashiers supervisor business and tend not make much money." The patient said that he realized this, and that he hoped that the treatment team would be an advocate in helping him convince his parents that he should be allowed to live in [place], come home for visits, but live where he can be close to his girlfriend. As far as precipitating factors and the patient's decompensation return to the hospital, he freely acknowledges that he stopped taking his prescribed psychiatric medications not long after discharge. He states categorically that this was clearly a "huge mistake," and he says that the fact that he decompensated so quickly has disabused him of any notion that he does not really need active psychiatric treatment. The patient explains, "I am 19. You can understand that I really do not like the idea that I would need to have to take potent psychiatric medications, possibly for the rest of my life." Much of today's encounter was devoted to processing the patient's feelings in this regard, acknowledging them as being perfectly understandable, and talking about how young people when diagnosed with treatable illnesses such as diabetes I have trouble accepting the diagnosis and have trouble following diabetic regimens. Patient said that he wondered if he could benefit from a behavioral health case manager who would check on him regularly and oversee his use of medications. He also tells me that he is spoken with his girlfriend about this and that when she comes to [place] she agrees to provide oversight to help the patient take his medicines as prescribed and keep his related appointments. Physical Exam Psychiatric Orientation: alert, oriented x 3 and cooperative Apperance: appropriately dressed, appropriately groomed and appeared stated age Eye Contact: + fair eye contact Motor Behavior: steady gait and station Speech: normal rate/rhythm/volume of speech Affect: + anxious affect "Anxious. I was having manic symptoms such as elation. The medicine is helping." Thought Process: goal directed thought process and + tangential thought process Thought Content: reality based without delusions (While the patient does not provide evidence of any current delusional believes, he may continue to minimize the seriousness of his condition and his ability to achieve sustained recovery quickly and easily.) Suicidal Thoughts: denies suicidal thoughts Homicidal Thoughts: denies homicidal thoughts Hallucinations: no auditory hallucinations and no visual hallucinations Cognition: recent memory grossly intact, remote memory grossly intact, attention grossly intact and language grossly intact Estimated Intelligence: + above average estimated intelligence Insight: + fair insight Judgement: + fair judgement Vital Signs (Past 24 Hours) Last Vital Signs Temp 36.6 C 01/08/20 06:21 Pulse 76 01/08/20 06:21 Resp 16 01/08/20 06:21 BP 113/70 01/08/20 06:21 Pulse Ox 96 01/02/20 22:34 Results & Data ([facility]) Current Inpatient Medications Current Inpatient Medications: Current Inpatient Medications Acetaminophen (Acetaminophen 325 Mg Tab) 650 mg PO Q4H PRN PRN Reason: Headache or Minor Fever Stop: 02/01/20 22:06 Al Hydrox/Mg Hydrox/Simethicone (Aluminum/Magnesium Susp 30 Ml Udc) 30 ml PO Q4H PRN PRN Reason: GI Upset Stop: 02/01/20 22:06 Benztropine Mesylate (Benztropine Mesylate 1 Mg Tab) 1 mg PO BID PRN PRN Reason: Muscle Spasm Stop: 02/02/20 10:12 Bismuth Subsalicylate (Bismuth Subsalicylate Liqd 236 Ml) 15 ml PO PRN PRN PRN Reason: Loose Stool Stop: 02/01/20 22:06 Haloperidol (Haloperidol 5 Mg Tab) 5 mg PO Q4H PRN PRN Reason: Anxiety/Agitation Stop: 02/02/20 13:00 Last Admin: 01/07/20 12:51 Dose: 5 mg Documented by: Hydroxyzine HCl (Hydroxyzine Hcl 25 Mg Tab) 50 mg PO HSZ PRN PRN Reason: Insomnia Stop: 02/01/20 22:06 Last Admin: 01/04/20 22:10 Dose: 50 mg Documented by: Hydroxyzine HCl (Hydroxyzine Hcl 25 Mg Tab) 25 mg PO Q4H PRN PRN Reason: Anxiety Stop: 02/01/20 22:06 Lamotrigine (Lamotrigine 25 Mg Tab) 50 mg PO QAM WENCESLAO Stop: 02/03/20 08:59 Last Admin: 01/08/20 09:01 Dose: 50 mg Documented by: Lorazepam (Lorazepam 1 Mg Tab) 1 mg PO Q6H PRN PRN Reason: Anxiety/Agitation Stop: 02/02/20 13:00 Last Admin: 01/07/20 09:15 Dose: 1 mg Documented by: Magnesium Hydroxide (Magnesium Hydroxide Susp 30 Ml Udc) 30 ml PO DAILY PRN PRN Reason: Constipation Stop: 02/01/20 22:06 Risperidone (Risperidone 3 Mg Tablet) 3 mg PO HS WENCESLAO Stop: 02/05/20 21:59 Last Admin: 01/07/20 20:30 Dose: 3 mg Documented by: Risperidone (Risperidone 1 Mg Tablet) 1 mg PO BID@0900,1700 WENCESLAO Stop: 02/07/20 16:59 Last Admin: 01/08/20 17:24 Dose: 1 mg Documented by: Sodium Chloride (Sodium Chloride 0.65% Na Soln 45 Ml ([place])) 1 - 2 sprays NA PRN PRN PRN Reason: Nasal Dryness/Congestion Stop: 02/01/20 22:06 Mental Health & Subst Abuse Tx Psychiatrist Name of Psychiatrist: [facility] Psychiatrist's Date of Appointment with Psychiatrist: 01/12/20 Time of Appointment with Psychiatrist: 12:40 p.m. Psychiatric Appointment Comment: [address] [place] [address], [address], [place], [place] Therapist Name of Therapist: [employer] Therapist's Date of Therapist Appointment: 01/15/20 Time of Therapist Appointment: 8:00 a.m. Therapy Appointment Comment: Please utilize the Zoom instruction sheet [employer] Name of [employer]: [employer] [facility] Phone Number for [employer]: [phone] Post Discharge Appointments Contact Information Discharge Discharge Address: [address] [place] [address]
[2020-01-08] MEDS: risperiDONE 3 MG TABLET PO SCH (20:26)
--- NOTE | 2020-01-09 07:57 | Psychiatric Progress Note ---
Date of Service January 09, 2020 Impression / Recommendations Ewa Kaur is a 19 y/o male with bipolar type I who was discharged from our unit 12/24/2019 after hospitalization for psychosis determined to be related to bipolar disorder and possibly cannabis use, during which he was started on lamotrigine and risperidone, and re-presented to the ER 9 days later with suicidal ideation and a plan to jump off a parking garage, with prominent thought disorganization, paranoia, hallucinations, and poor insight and judgment. It is not clear if he has been complying with his medication. He is opposed to switching to BLAND. He is impulsive, labile, with poor insight and judgment. Although when he was discharge from our unit 2 weeks ago the plan was for him to return to [place] and live with parents, he is since gotten an apartment in [place] and returned here, and has no outpatient treatment here. Reviewed with both patient and his parents that recommendation from our unit is that patient return home to live with his parents and that he be enrolled in an IOP/PHP to provide much needed outpatient support. Inpatient treatment remains medically necessary due to the severity of his symptoms, inability to provide for his own basic needs without the care and assistance of others, and risk for suicide if discharged. (1) Bipolar 1 disorder: 01/02 - The patient was admitted to the [facility] ([facility] inpatient mental health unit) on q15 min checks (behavioral with suicide precautions) for safety. The patient will participate in group, recreational, and milieu therapies and will be offered additional individual and family sessions as clinically appropriate. He was scheduled to increase his Lamictal on 01/04, will titrate tomorrow given good tolerability and ongoing suzanne. Titrate Risperdal for ease of dosing and patient prefers split dosing given daytime symptoms, will give 1 mg in am and 2 mg hs and monitor. No evidence of EPS. 01/03 -continue voluntary hospitalization, consider the need for conversion to an involuntary 302 commitment if patient persists in requests to leave, as he remains psychotic and is in a mixed state with suicidal ideation. He has no local outpatient treatment, and will need to be referred for psychiatry and therapy. He has little support in the area, and got an apartment where he plans to live alone, despite recommendations at the time of his last hospitalization that he returned home to [place] to live with parents. It is unclear why they did not follow this plan, and he will need a meeting with his father once he is less psychotic and able to tolerate it. -Move patient to a private room as soon as it is available, given his poor sleep, inappropriate interpersonal behavior, psychotic symptoms, and behavioral dyscontrol. -Increase risperidone to 1 mg every morning and every 5 p.m. and 2 mg at bedtime. Fasting labs from 12/21/2019 reviewed; glucose 106, FLP normal. Continue lamotrigine titration per standard titration schedule. 01/04 - Continue current medication regimen. Pt thoughts seem to be slightly more organized and goal directed, but he still is having considerable difficulty processing information. Pt receiving 1mg of risperidone qAM and 3mg qHS. - Continue MNPR at this time - When appropriate, will need to begin discharge planning by involving patient in decisions regarding where he will live, what supports are available, and where aftercare referrals will be made 01/05 - Pt requesting, and would benefit from, titration of risperidone - will order for 1mg qAM and 4mg qHS. Continue lamotrigine 50mg qAM. - Pt continues to have flight of ideas and ideas of reference. He is better able to articulate these ideas, but is still very unstable, labile, and unpredictable. - Support meeting scheduled with patient's father to discuss discharge planning and provide psychoeducation. Recommendations from our team are that patient return home with parental supervision and that he be enrolled in more intensive outpatient psychiatric programs back home. 01/06 - Reviewed recommendations for more intensive outpatient support with patient, who at this time is reporting understanding of recommendation that he return home with his parents. Reviewed this with parents as well, who are now supportive of patient being referred to an [facility] and returning home to [place], [place]. - Family meeting today with both mother and father participating via phone - Continue current medication regimen with titration of risperidone as indicated. - Pt continues to be disorganized and delusional with flight of ideas. He is able to demonstrate some insight, admitting that he does not like feeling this way. He continues to request "more" and "stronger" medication. - This provider did discuss option to discontinue lamotrigine and replace with lithium - patient was open to conversation, but very clearly articulated that he is not interested in frequent blood draws. He reported "let's go to the max of Risperdal, and if that doesn't work then we can talk about blood draws." - Pt continues to require inpatient psychiatric treatment; will continue MNPR to permit for reduced stimulation, as patient admits his condition is worsened when interacting with peers who are also demonstrating poor boundaries. 01/07 -Today, the patient does not exhibit any delusional material in his thought content, and his thought processes, while sometimes somewhat tangential or idiosyncratic, are not consistent with the finding of flight of ideas. His speech is no longer pressured, and he does say that he feels that his current medications are reasonably well-tolerated and he can tell that he is "coming down" and getting better. The plan is to continue his current medications and titrate lamotrigine, which recent studies have indicated may be even more effective than lithium carbonate in treating bipolar disorderand often with fewer negative side effects. -Patient does note that risperidone is somewhat sedating, but he feels he can tolerate it and he also notes that it helps him sleep at night. -The patient understands the thinking behind the plan for him to temporarily return to the home of his parents and [place], [place]. However, he says that he feels that he is at this point "too Americanized," while his parents seem to view the family as a "corporation that is run by a top down management style." He says that he realizes that his parents, with every good intention, will attempt to direct every aspect of his life while seeking to guarantee "what is best for [him]," even if it is a matter that is relatively minor and seemingly unrelated to a mental illness. In other words, he says that he knows his parents well enough to know that they will use his mental illness as an excuse for tightening there control of his every day life. He mentions, for example, that his parents would never consent to allow him to spend the night with his girlfriend, and would be likely to say that that would not be good for his "mental health" even though the real reason would be cultural. 01/08 - Continue current medication regimen - risperidone dosing adjusted to allow for TID dosing of 1mg qAM, 1mg @17:00, and 3mg at bedtime. Pt feels this dosing w as helpful yesterday - Pt continues to be ambivalent about his discharge plans - telling family today that he is returning home to [place], but consistently telling staff that he has no intention to leave [place]. Pt will need to be encouraged to make a decision so that appropriate aftercare planning can continue - He does admit that, should he stay in [place], he is willing for case management referral with eventual referral to [facility], and is willing to have his dad stay with him for several weeks until his girlfriend returns. Pt was clearly reminded that our recommendation is for a PHP/IOP option. He recognizes the need for additional services on discharge. - Reviewed patient's re-submission of his 72-hour notice. He admits he was not in a clear mind last evening when submitting it, but reports his thoughts are now clear and he wishes to leave Saturday. Pt did state he would be willing to remain in the hospital until aftercare plans were set up. (2) Cannabis abuse: 01/03 -reviewed during recent hospitalization, reportedly patient cut back on his marijuana use in the week that he was out of the hospital. UDS -on second presentation. Continue to support abstinence from controlled substances, and provide psychoeducation about the risks of substance use. 01/07 -abstinence from drugs of abuse, including marijuana, was reinforced today through patient education. Inventory Assets Strengths: intelligent, family support, cut back/eliminated MJ Needs: increase insight into his condition, local supports and outpatient treatment. Risk Factors Assessment Male: Yes : No Do You Have Access To A Gun?: No Health Problems: No Mental Health Diagnoses: Yes Previous Psychiatric Hospitalization: Yes Hopelessness: Yes Smoker: No Protective Factors Assessment : No Responsible for Young Children: No Employed: No Supportive Family: Yes Good Rapport with Provider: No (No outpatient treatment) Interval History Identifying Information WINTER DUQUE is a 19-year-old M, [employer] sophomore (withdrew for semester) who currently lives in a new apartment alone, was just discharged from on 12/24/19 after hospitalization for bipolar type I with psychosis, and was admitted on 01/02/20 22:07 on a 201 voluntary commitment for SI with a plan to jump off a parking garage. He was brought in by police on a 302, which was dispositioned in the ER when he signed in voluntarily. Chief Complaint "Better." Review of Systems Notes Constitutional: denied Cardiovascular: denied Respiratory: denied Gastrointestinal: denied Neurological: denied Psychiatric: denies symptoms other than stated above Total of at least 10 systems reviewed, pertinent positives as above and in HPI. Sleep Information Total Hours of Sleep: 9 Sleep Comments: pt appeared to sleep 2.5 hrs during evening shift. pt with PATTY @0545 and thereafter. pt on q-15 minute checks Meal Information Percent Meal Consumed - Breakfast: 80 Percent Meal Consumed - Lunch: 100 Percent Meal Consumed - Dinner: 75 Subjective Subjective Patient was seen & assessed and interval progress reviewed with nursing and social work. Staff report the patient continued to have episodes of psychosis throughout the evening yesterday, speaking to staff of "two personalities." So far this morning, staff is reporting the patient is engaging in lucid conversation and seems more appropriate. Pt was seen today to assess progress since admission. Pt states he is feeling "better" today. He reports "I feel much more lucid, rather than [id number] or out-of-body. That's how I was before." Pt admits "I had been feeling like things were out of perspective, like everything was happening from only my perspective - that's not happening today." Pt does feel that spreading out his dosage of risperidone to TID is "helping, I felt like it was wearing off later in the evenings." Pt states sleep and appetite remain decent. We discussed patient's reports to our psychiatrist yesterday that, although he agreed to returning to [place] to complete PHP, he never intended to leave [place]. Pt states "yeah, I really don't want to go home. I'm learning some of my triggers for my bipolar disorder, and I think one of them is stress. Home is very high stress." Pt was reminded of our recommendation for PHP on discharge, and was asked how remaining in [place] would be different from the last time he was disch arged from our facility and presented in just over a weekend. He states "I was discharged before a weekend, I was preoccupied with the move so I didn't take my medications. I needed to meet with someone, but it was the weekend, so I had no one to talk to." Pt admits that he needs a higher level of support when he is discharged. He is telling this provider that he plans to set alarms to assist with medication compliance. He was also agreeable with referral for a case loader operator, with potential to explore [facility]hab. Pt also stated he felt it would be helpful if his dad lived with him for several weeks until he was stable. Pt continues to state that he believes his girlfriend will be his support after that time. Pt states "I'm realizing I roll over a lot during conversations, I just agree to whatever people tell me. I need to be more assertive." It was felt that patient had made progress in at least agreeing to the full spectrum of what our [facility] can offer with regard to outpatient psychiatric support; however, this provider was also informed by staff that the patient is still telling his parents that he intends to return home to [place] and start the [facility] as scheduled. Physical Exam Psychiatric Orientation: alert, oriented x 3 and cooperative (conversation is more lucid today) Apperance: appropriately dressed, appropriately groomed and appeared stated age Eye Contact: good eye contact (far less prolonged staring, much more appropriate) Motor Behavior: no abnormal motor movements (observed while sitting upright on bed) Speech: normal rate/rhythm/volume of speech Affect: + blunted affect Appearing less psychotic today. Far less staring, eye contact is more appropriate, far less constricted - at least at time of this conversation Mood: + anxious mood (admits to still feeling "under stress"); no depressed mood Thought Process: goal directed thought process, clear/coherent thought process and thought association intact Presently, patient is able to have a clear and coherent conversation - unfortunately, this is not alway maintained for the duration of the day Thought Content: reality based without delusions (is able, at least at this time, to articulate clear discharge plan); no hopelessness and no worthlessness Pt able to provide an analysis of his present state, admitting he is more lucid, and not feeling his thoughts are "out of perspective" as they had been in the past" Suicidal Thoughts: denies suicidal thoughts and denies suicidal intent Homicidal Thoughts: denies homicidal thoughts Hallucinations: no auditory hallucinations and no visual hallucinations Cognition: attention grossly intact and language grossly intact Estimated Intelligence: consistent with education level Insight: + impaired insight (though at least seems much improved from yesterday, remains inconsistent) Judgement: + impaired judgement Vital Signs (Past 24 Hours) Last Vital Signs Temp 36.7 C 01/09/20 06:32 Pulse 75 01/09/20 06:33 Resp 16 01/09/20 06:32 BP 120/80 01/09/20 06:33 Pulse Ox 96 01/02/20 22:34 Results & Data ([facility]) Current Inpatient Medications Current Inpatient Medications: Current Inpatient Medications Acetaminophen (Acetaminophen 325 Mg Tab) 650 mg PO Q4H PRN PRN Reason: Headache or Minor Fever Stop: 02/01/20 22:06 Al Hydrox/Mg Hydrox/Simethicone (Aluminum/Magnesium Susp 30 Ml Udc) 30 ml PO Q4H PRN PRN Reason: GI Upset Stop: 02/01/20 22:06 Benztropine Mesylate (Benztropine Mesylate 1 Mg Tab) 1 mg PO BID PRN PRN Reason: Muscle Spasm Stop: 02/02/20 10:12 Bismuth Subsalicylate (Bismuth Subsalicylate Liqd 236 Ml) 15 ml PO PRN PRN PRN Reason: Loose Stool Stop: 02/01/20 22:06 Haloperidol (Haloperidol 5 Mg Tab) 5 mg PO Q4H PRN PRN Reason: Anxiety/Agitation Stop: 02/02/20 13:00 Last Admin: 01/07/20 12:51 Dose: 5 mg Documented by: Hydroxyzine HCl (Hydroxyzine Hcl 25 Mg Tab) 50 mg PO HSZ PRN PRN Reason: Insomnia Stop: 02/01/20 22:06 Last Admin: 01/04/20 22:10 Dose: 50 mg Documented by: Hydroxyzine HCl (Hydroxyzine Hcl 25 Mg Tab) 25 mg PO Q4H PRN PRN Reason: Anxiety Stop: 02/01/20 22:06 Lamotrigine (Lamotrigine 25 Mg Tab) 50 mg PO QAM WENCESLAO Stop: 02/03/20 08:59 Last Admin: 01/08/20 09:01 Dose: 50 mg Documented by: Lorazepam (Lorazepam 1 Mg Tab) 1 mg PO Q6H PRN PRN Reason: Anxiety/Agitation Stop: 02/02/20 13:00 Last Admin: 01/07/20 09:15 Dose: 1 mg Documented by: Magnesium Hydroxide (Magnesium Hydroxide Susp 30 Ml Udc) 30 ml PO DAILY PRN PRN Reason: Constipation Stop: 02/01/20 22:06 Risperidone (Risperidone 3 Mg Tablet) 3 mg PO HS WENCESLAO Stop: 02/05/20 21:59 Last Admin: 01/08/20 20:26 Dose: 3 mg Documented by: Risperidone (Risperidone 1 Mg Tablet) 1 mg PO BID@0900,1700 WENCESLAO Stop: 02/07/20 16:59 Last Admin: 01/08/20 17:24 Dose: 1 mg Documented by: Sodium Chloride (Sodium Chloride 0.65% Na Soln 45 Ml ([place])) 1 - 2 sprays NA PRN PRN PRN Reason: Nasal Dryness/Congestion Stop: 02/01/20 22:06 Mental Health & Subst Abuse Tx Psychiatrist Name of Psychiatrist: [facility]'s Date of Appointment with Psychiatrist: 01/12/20 Time of Appointment with Psychiatrist: 12:40 p.m. Psychiatric Appointment Comment: [address] [place] [address], [address], [place], [place] Therapist Name of Therapist: [facility] Date of Therapist Appointment: 01/15/20 Time of Therapist Appointment: 8:00 a.m. Therapy Appointment Comment: Please utilize the Zoom instruction sheet Wellness Consultant Name of Wellness Consultant: MIGUEL ANG[facility] [employer] [facility] Phone Number for Wellness Consultant: [phone] Post Discharge Appointments Contact Information Discharge Discharge Address: [address] [place] [id number]
[2020-01-09] MEDS: lamoTRIgine 25 MG TAB PO SCH (08:41)
[2020-01-09] MEDS: risperiDONE 1 MG TABLET PO SCH ×2 (08:42→17:25)
[2020-01-09] MEDS: risperiDONE 3 MG TABLET PO SCH (20:31)
[2020-01-10] MEDS: lamoTRIgine 25 MG TAB PO SCH (08:32)
[2020-01-10] MEDS: risperiDONE 1 MG TABLET PO SCH ×2 (08:32→17:19)
--- NOTE | 2020-01-10 08:37 | Psychiatric Progress Note ---
Date of Service January 10, 2020 Impression / Recommendations Ewa Kaur is a 19 y/o male with bipolar type I who was discharged from our unit 12/24/2019 after hospitalization for psychosis determined to be related to bipolar disorder and possibly cannabis use, during which he was started on lamotrigine and risperidone, and re-presented to the ER 9 days later with suicidal ideation and a plan to jump off a parking garage, with prominent thought disorganization, paranoia, hallucinations, and poor insight and judgment. It is not clear if he has been complying with his medication. He is opposed to switching to BLAND. He is impulsive, labile, with poor insight and judgment. Although when he was discharge from our unit 2 weeks ago the plan was for him to return to [place] and live with parents, he is since gotten an apartment in [place] and returned here, and has no outpatient treatment here. Reviewed with both patient and his parents that recommendation from our unit is that patient return home to live with his parents and that he be enrolled in an IOP/PHP to provide much needed outpatient support. After much ambivalence on the part of the patient, he is now stating he will remain in [place] and a case management referral has been sent to provide additional support and explore options for Psych Rehab or Clubhouse. Inpatient treatment remains medically necessary due to the severity of his symptoms, inability to provide for his own basic needs without the care and assistance of others, and risk for suicide if discharged. (1) Bipolar 1 disorder: 01/02 - The patient was admitted to the [facility] ([facility]) on q15 min checks (behavioral with suicide precautions) for safety. The patient will participate in group, recreational, and milieu therapies and will be offered additional individual and family sessions as clinically appropriate. He was scheduled to increase his Lamictal on 01/04, will titrate tomorrow given good tolerability and ongoing suzanne. Titrate Risperdal for ease of dosing and patient prefers split dosing given daytime symptoms, will give 1 mg in am and 2 mg hs and monitor. No evidence of EPS. 01/03 -continue voluntary hospitalization, consider the need for conversion to an involuntary 302 commitment if patient persists in requests to leave, as he remains psychotic and is in a mixed state with suicidal ideation. He has no local outpatient treatment, and will need to be referred for psychiatry and therapy. He has little support in the area, and got an apartment where he plans to live alone, despite recommendations at the time of his last hospitalization that he returned home to [place] to live with parents. It is unclear why they did not follow this plan, and he will need a meeting with his father once he is less psychotic and able to tolerate it. -Move patient to a private room as soon as it is available, given his poor sleep, inappropriate interpersonal behavior, psychotic symptoms, and behavioral dyscontrol. -Increase risperidone to 1 mg every morning and every 5 p.m. and 2 mg at bedtime. Fasting labs from 12/21/2019 reviewed; glucose 106, FLP normal. Continue lamotrigine titration per standard titration schedule. 01/04 - Continue current medication regimen. Pt thoughts seem to be slightly more organized and goal directed, but he still is having considerable difficulty processing information. Pt receiving 1mg of risperidone qAM and 3mg qHS. - Continue MNPR at this time - When appropriate, will need to begin discharge planning by involving patient in decisions regarding where he will live, what supports are available, and where aftercare referrals will be made 01/05 - Pt requesting, and would benefit from, titration of risperidone - will order for 1mg qAM and 4mg qHS. Continue lamotrigine 50mg qAM. - Pt continues to have flight of ideas and ideas of reference. He is better able to articulate these ideas, but is still very unstable, labile, and unpredictable. - Support meeting scheduled with patient's father to discuss discharge planning and provide psychoeducation. Recommendations from our team are that patient return home with parental supervision and that he be enrolled in more intensive outpatient psychiatric programs back home. 01/06 - Reviewed recommendations for more intensive outpatient support with patient, who at this time is reporting understanding of recommendation that he return home with his parents. Reviewed this with parents as well, who are now supportive of patient being referred to an [facility] and returning home to [place], [place]. - Family meeting today with both mother and father participating via phone - Continue current medication regimen with titration of risperidone as indicated. - Pt continues to be disorganized and delusional with flight of ideas. He is able to demonstrate some insight, admitting that he does not like feeling this way. He continues to request "more" and "stronger" medication. - This provider did discuss option to discontinue lamotrigine and replace with lithium - patient was open to conversation, but very clearly articulated that he is not interested in frequent blood draws. He reported "let's go to the max of Risperdal, and if that doesn't work then we can talk about blood draws." - Pt continues to require inpatient psychiatric treatment; will continue MNPR to permit for reduced stimulation, as patient admits his condition is worsened when interacting with peers who are also demonstrating poor boundaries. 01/07 -Today, the patient does not exhibit any delusional material in his thought content, and his thought processes, while sometimes somewhat tangential or idiosyncratic, are not consistent with the finding of flight of ideas. His speech is no longer pressured, and he does say that he feels that his current medications are reasonably well-tolerated and he can tell that he is "coming down" and getting better. The plan is to continue his current medications and titrate lamotrigine, which recent studies have indicated may be even more effective than lithium carbonate in treating bipolar disorderand often with fewer negative side effects. -Patient does note that risperidone is somewhat sedating, but he feels he can tolerate it and he also notes that it helps him sleep at night. -The patient understands the thinking behind the plan for him to temporarily return to the home of his parents and [place], [place]. However, he says that he feels that he is at this point "too Americanized," while his parents seem to view the family as a "corporation that is run by a top down management style." He says that he realizes that his parents, with every good intention, will attempt to direct every aspect of his life while seeking to guarantee "what is best for [him]," even if it is a matter that is relatively minor and seemingly unrelated to a mental illness. In other words, he says that he knows his parents well enough to know that they will use his mental illness as an excuse for tightening there control of his every day life. He mentions, for example, that his parents would never consent to allow him to spend the night with his girlfriend, and would be likely to say that that would not be good for his " mental health" even though the real reason would be cultural. 01/08 - Continue current medication regimen - risperidone dosing adjusted to allow for TID dosing of 1mg qAM, 1mg @17:00, and 3mg at bedtime. Pt feels this dosing was helpful yesterday - Pt continues to be ambivalent about his discharge plans - telling family today that he is returning home to [place], but consistently telling staff that he has no intention to leave [place]. Pt will need to be encouraged to make a decision so that appropriate aftercare planning can continue - He does admit that, should he stay in [place], he is willing for case management referral with eventual referral to Psych Rehab/Clubhouse, and is willing to have his dad stay with him for several weeks until his girlfriend returns. Pt was clearly reminded that our recommendation is for a PHP/IOP option. He recognizes the need for additional services on discharge. - Reviewed patient's re-submission of his 72-hour notice. He admits he was not in a clear mind last evening when submitting it, but reports his thoughts are now clear and he wishes to leave Saturday. Pt did state he would be willing to remain in the hospital until aftercare plans were set up. 01/09 - Continue as above, discussed recommendation to continue TID dosing of risperidone on discharge. - Follow-up phone meeting with patient's father and the patient - attempting to solidify discharge plans. Pt reports he will stay in [place], father willing to live with the patient for the next several weeks to provide additional support. - Case management referral sent, will follow up tomorrow and hopefully have patient complete phone intake prior to discharge home (2) Cannabis abuse: 01/03 -reviewed during recent hospitalization, reportedly patient cut back on his marijuana use in the week that he was out of the hospital. UDS -on second presentation. Continue to support abstinence from controlled substances, and provide psychoeducation about the risks of substance use. 01/07 -abstinence from drugs of abuse, including marijuana, was reinforced today through patient education. Inventory Assets Strengths: intelligent, family support, cut back/eliminated MJ Needs: increase insight into his condition, local supports and outpatient treatment. Risk Factors Assessment Male: Yes : No Do You Have Access To A Gun?: No Health Problems: No Mental Health Diagnoses: Yes Previous Psychiatric Hospitalization: Yes Hopelessness: Yes Smoker: No Protective Factors Assessment : No Responsible for Young Children: No Employed: No Supportive Family: Yes Good Rapport with Provider: No (No outpatient treatment) Interval History Identifying Information WINTER DUQUE is a 19-year-old M, [employer] sophomore (withdrew for semester) who currently lives in a new apartment alone, was just discharged from on 12/24/19 after hospitalization for bipolar type I with psychosis, and was admitted on 01/02/20 22:07 on a 201 voluntary commitment for SI with a plan to jump off a parking garage. He was brought in by police on a 302, which was dispositioned in the ER when he signed in voluntarily. Chief Complaint "Ok, pretty swell I guess." Review of Systems Notes Constitutional: denied Cardiovascular: denied Respiratory: denied Gastrointestinal: denied Neurological: denied Psychiatric: denies symptoms other than stated above Total of at least 10 systems reviewed, pertinent positives as above and in HPI. Sleep Information Total Hours of Sleep: 8 Sleep Comments: pt appeared to sleep 2.5 hrs during evening shift. pt with PATTY @0545 and thereafter. pt on q-15 minute checks Meal Information Percent Meal Consumed - Breakfast: 80 Percent Meal Consumed - Lunch: 100 Percent Meal Consumed - Dinner: 100 Subjective Subjective Patient was seen & assessed and interval progress reviewed with nursing and social work. Staff report the patient has been participating in groups, but admits that he is "bored" so would like to go home. Pt has been denying SI and AH. Pt was seen today to assess progress since admission. Pt reports he is "ok, pretty swell I guess." Pt admits "I'm pretty bored." Pt reports he is planning to read a book "to help make the time go quicker." Pt inquires about possible discharge tomorrow. We reviewed recommendation that he ideally complete the phone intake with the [facility] and have an appointment scheduled prior to leaving the hospital. He was understanding of this, and reported willingness to rescind his 72-hr notice if needed to ensure this step was complete. Pt states he is willing to have a follow-up phone call with his parents today to discuss his aftercare plans and ensure the family is on the same page. Pt denies auditory hallucinations or any bizarre or disconnected thoughts. He does admit to having some thinking he describes as "negative thoughts", but denies that there are any thoughts to harm himself and states they are not suicidal ideations. Pt states he is easily able to reality test "that things are actually going well, and that I can accomplish my goals" and the thoughts go away. Although our recommendation remains for a PHP options on discharge, patient is able to articulate that "the environment back home is really not helpful, I know that I wouldn't do well. I like [place], and that's why I want to stay." Pt denies other needs or concerns prior to discharge. Physical Exam Psychiatric Orientation: alert, oriented x 3 and cooperative Apperance: appropriately dressed, appropriately groomed and appeared stated age Eye Contact: good eye contact Motor Behavior: no abnormal motor movements (observed while sitting upright on bed) Speech: normal rate/rhythm/volume of speech Affect: + constricted affect (but appearing somewhat more expressive) Mood: no depressed mood and no anxious mood "Pretty swell" Thought Process: goal directed thought process and clear/coherent thought process Thought Content: reality based without delusions; no hopelessness and no worthlessness Suicidal Thoughts: denies suicidal thoughts and denies suicidal intent Homicidal Thoughts: denies homicidal thoughts Hallucinations: no auditory hallucinations and no visual hallucinations Cognition: attention grossly intact and language grossly intact Estimated Intelligence: consistent with education level Insight: + fair insight Judgement: + fair judgement Vital Signs (Past 24 Hours) Last Vital Signs Temp 36.7 C 01/10/20 06:40 Pulse 83 01/10/20 06:41 Resp 16 01/10/20 06:40 BP 116/80 01/10/20 06:41 Pulse Ox 96 01/02/20 22:34 Results & Data ([facility]) Current Inpatient Medications Current Inpatient Medications: Current Inpatient Medications Acetaminophen (Acetaminophen 325 Mg Tab) 650 mg PO Q4H PRN PRN Reason: Headache or Minor Fever Stop: 02/01/20 22:06 Al Hydrox/Mg Hydrox/Simethicone (Aluminum/Magnesium Susp 30 Ml Udc) 30 ml PO Q4H PRN PRN Reason: GI Upset Stop: 02/01/20 22:06 Benztropine Mesylate (Benztropine Mesylate 1 Mg Tab) 1 mg PO BID PRN PRN Reason: Muscle Spasm Stop: 02/02/20 10:12 Bismuth Subsalicylate (Bismuth Subsalicylate Liqd 236 Ml) 15 ml PO PRN PRN PRN Reason: Loose Stool Stop: 02/01/20 22:06 Haloperidol (Haloperidol 5 Mg Tab) 5 mg PO Q4H PRN PRN Reason: Anxiety/Agitation Stop: 02/02/20 13:00 Last Admin: 01/07/20 12:51 Dose: 5 mg Documented by: Hydroxyzine HCl (Hydroxyzine Hcl 25 Mg Tab) 50 mg PO HSZ PRN PRN Reason: Insomnia Stop: 02/01/20 22:06 Last Admin: 01/04/20 22:10 Dose: 50 mg Documented by: Hydroxyzine HCl (Hydroxyzine Hcl 25 Mg Tab) 25 mg PO Q4H PRN PRN Reason: Anxiety Stop: 02/01/20 22:06 Lamotrigine (Lamotrigine 25 Mg Tab) 50 mg PO QAM WENCESLAO Stop: 02/03/20 08:59 Last Admin: 01/10/20 08:32 Dose: 50 mg Documented by: Lorazepam (Lorazepam 1 Mg Tab) 1 mg PO Q6H PRN PRN Reason: Anxiety/Agitation Stop: 02/02/20 13:00 Last Admin: 01/07/20 09:15 Dose: 1 mg Documented by: Magnesium Hydroxide (Magnesium Hydroxide Susp 30 Ml Udc) 30 ml PO DAILY PRN PRN Reason: Constipation Stop: 02/01/20 22:06 Risperidone (Risperidone 3 Mg Tablet) 3 mg PO HS WENCESLAO Stop: 02/05/20 21:59 Last Admin: 01/09/20 20:31 Dose: 3 mg Documented by: Risperidone (Risperidone 1 Mg Tablet) 1 mg PO BID@0900,1700 WENCESLAO Stop: 02/07/20 16:59 Last Admin: 01/10/20 08:32 Dose: 1 mg Documented by: Sodium Chloride (Sodium Chloride 0.65% Na Soln 45 Ml ([place])) 1 - 2 sprays NA PRN PRN PRN Reason: Nasal Dryness/Congestion Stop: 02/01/20 22:06 Mental Health & Subst Abuse Tx Psychiatrist Name of Psychiatrist: [facility]'s Date of Appointment with Psychiatrist: 01/12/20 Time of Appointment with Psychiatrist: 12:40 p.m. Psychiatric Appointment Comment: [address] [place] [address], [address], [address], [place], [place] Therapist Name of Therapist: [facility] Therapist's Date of Therapist Appointment: 01/15/20 Time of Therapist Appointment: 8:00 a.m. Therapy Appointment Comment: Please utilize the Zoom instruction sheet Case Work Aide Name of Case Work Aide: MIGUEL ANG[facility] [employer] [facility] Phone Number for Case Work Aide: [phone] Post Discharge Appointments Other #1: Name of Aftercare Appointment: [facility] Phone Number of Aftercare Appointment: [phone] Time of Aftercare Appointment: Will contact you with field nurse case managerwriting manager Aftercare Appointment Comment: [address] [facility], [address] [place] [address] Contact Information Discharge Discharge Address: [address] [place] [id number]
[2020-01-10] MEDS: risperiDONE 3 MG TABLET PO SCH (20:24)
[2020-01-11] MEDS: lamoTRIgine 25 MG TAB PO SCH (07:57)
[2020-01-11] MEDS: risperiDONE 1 MG TABLET PO SCH (07:57)
--- NOTE | 2020-01-11 09:42 | Discharge Summary ---
Date of Service January 11, 2020 History of Present Illness Patient was admitted last time on a 302 commitment following heavy MJ use with psychotic symptoms (hills and thought disorganization/expansiveness) and was started on Risperdal and lamictal. His suzanne improved and he was discharged to [place] to stay with family. They ultimately decided to withdraw him from the semester and father found him an apartment. Vincent returned to [place] yesterday. He states he was relating well to parents and taking his medication but the father told the emergency dept. he may not be. Urine tox was negative for MJ. It's unclear how long Vincent was having suicidal thoughts, at first he said less than a day then later stated he had the thoughts longer. He may not be providing accurate history re: auditory hallucinations either as he denies today that "they are there" but had endorsed in the ER then made a disconnected statement about nature rather than describing them. He had some insight that he was feeling more anxious/restless and impulsive and that is when he called the police yesterday and was brought to ED on 302 box b warrant. Vincent denies rash. Vegetative symptoms are denied as sleep and appetite are intact. He returned to [place] to be closer to his girlfriend. He states that he is not living with her as she is following her parents "traditional wishes" as they are not . Physical Exam Psychiatric Orientation: alert and cooperative Apperance: appropriately dressed, appropriately groomed and appeared stated age Eye Contact: good eye contact Motor Behavior: steady gait and station and no abnormal motor movements Speech: normal rate/rhythm/volume of speech Affect: euthymic affect and mood congruent with affect Mood: no depressed mood and no anxious mood "A lot better." Thought Process: goal directed thought process Thought Content: reality based without delusions Suicidal Thoughts: denies suicidal thoughts Homicidal Thoughts: denies homicidal thoughts Hallucinations: no auditory hallucinations and no visual hallucinations Cognition: recent memory grossly intact, attention grossly intact and language grossly intact Estimated Intelligence: consistent with education level Insight: + fair insight Judgement: + fair judgement Vital Signs (Past 24 Hours) Last Vital Signs Temp 36.6 C 01/11/20 06:36 Pulse 76 01/11/20 06:37 Resp 16 01/11/20 06:36 BP 109/72 01/11/20 06:37 Pulse Ox 96 01/02/20 22:34 Principal Diagnosis Bipolar disorder type I, most recent episode manic with psychosis Cannabis use disorder Psychiatric Data The patient was hospitalized for 9 days. On admission, he was disorganized, labile, impulsive, and lacked insight into his illness. He was continued on lamotrigine and the dose was increased per the standard dose titration schedule to 50 mg daily. Risperidone was increased as well to target mood and psychotic symptoms. Parents were contacted for collateral information, and stated that the patient and his father drove back and forth between [place] and [place] several times in the 10 days that he was out of the hospital, and parents ultimately got him a new apartment in [place], with plans for him to live there alone, despite having withdrawn from school due to his mental illness. He did not have any outpatient mental health services, and parents were looking into local options. Recommendations were for patient to return to [facility] so that he could attend partial hospitalization, which is not available here, and at one point during his hospitalization, patient and parents agreed to this and arrangements were made, he however changed his mind and stated he was be staying in [place]. Father made a plan to stay with him for a couple of weeks after discharge, and he was referred for local therapy and psychiatric care. He was initially too disorganized to participate in groups, and utilized the safe room due to lability and agitation. As symptoms improved and he stabilized, he was able to participate appropriately in groups and therapy, and interact appropriately with staff and peers. Education was provided regarding the risks of ongoing cannabis use and recommendations for abstinence. He did report decreased use, and UDS on second hospitalization was negative, which supported this. Family meeting was held with his father and mother on 01/07/2020, again reviewed the treatment recommendations with them including recommendations for more intensive outpatient treatment (IOP or PHP), which they voiced agreement with. The patient said his parents would then have to buy him a place to live in [place], and again reviewed with family that recommendations were for him to stay with parents for additional support and oversight. The patient initially agreed to this and referrals were made, but later changed his mind and refused to return to [facility], stating he would stay in [place] in his apartment with local aftercare. A second family meeting was held 01/10/2020 with the patient and his father, during which the treatment team's recommendations were again reviewed, including the importance of more intensive outpatient treatment than is offered locally, but the patient and his father were adamant that he would stay in [place] instead of returning to [facility]. A referral was made for a blended case management, outpatient psychiatry and therapy, with recommendations for psych rehab, and mobile med management, to be arranged by his shelter case manager. The option of attending IOP remotely was also discussed. The patient submitted and rescinded multiple 72-hour notices during his stay. His mood and psychotic symptoms gradually improved. Day of Discharge Assessment Staff report the patient has been reporting improved mood, consistently denying suicidal ideation and hallucinations, and thoughts have been clear and rational. He has been attending and participating in groups, and interacting appropriately with others. On my assessment, he states that his mood is "a lot better, more like myself." He describes mood as improved and stable. He denies hallucinations, paranoia, thoughts of harming himself, or thoughts of harming others. He complains of being "a little bit bored and here," and is looking forward to returning home, spending time with his father, cocaine, watching YouTube, going on walks outside, relaxing, and seeing his girlfriend when she returns to the in a couple of weeks. He denies side effects to medications, and asks if his risperidone can be consolidated to bedtime so that he does not have to remember to take a dose in the afternoon. He states willingness to follow-up with outpatient appointments as scheduled. Transition of Care Transition Of Care Record: was reviewed with the patient Advance Directives Advance Directives Information Provided: Yes Advance Directives: No Mental Health Advance Directive: No Advance Directives on File: No Living Will: No Power of Underbaster: No Advance Directives Reason:: Declines as Mental Health Visit. Risk Factors Assessment Risk factors were mitigated by admission to the inpatient unit, use of medications to target mood and psychotic symptoms, education about his diagnoses and the recommended treatment, participation in groups and therapy, working on healthy coping skills and a discharge safety plan, multiple family meetings with parents, recommendations for referral to PHP/IOP (which patient ultimately refused), and referral for local outpatient care. He has demonstrated improvement in mood and psychotic symptoms, is taking medications as prescribed, denying SI, HI, and psychotic symptoms, is eating and sleeping well, performing ADLs independently, and stating willingness to follow-up with outpatient treatment. He is requesting discharge, and his father will be staying with him for a couple of weeks and is in agreement with the discharge plan. As he is no longer at acute risk of harm to himself or others, he can be managed as an outpatient at this time. Male: Yes : No Do You Have Access To A Gun?: No Health Problems: No Mental Health Diagnoses: Yes Previous Psychiatric Hospitalization: Yes Hopelessness: Yes Smoker: No Protective Factors Assessment : No Responsible for Young Children: No Employed: No Supportive Family: Yes Good Rapport with Provider: No (No outpatient treatment) Discharge Data Lab Results 01/02/20 01/02/20 01/02/20 17:40 17:42 17:42 WBC RBC Hgb Hct MCV MCH MCHC RDW Std Deviation RDW Coeff of Kaylah Plt Count MPV Immature Gran % (Auto) Neut % (Auto) Lymph % (Auto) Warren % (Auto) Eos % (Auto) Baso % (Auto) Neut # (Auto) Lymph # (Auto) Warren # (Auto) Eos # (Auto) Baso # (Auto) Immature Gran # (Auto) Sodium Potassium Chloride Carbon Dioxide Anion Gap BUN Creatinine Est Cr Clr Drug Dosing Est GFR ( Amer) Est GFR (Non-Af Amer) BUN/Creatinine Ratio Glucose Calcium Total Bilirubin AST ALT Alkaline Phosphatase Total Protein Albumin Globulin Albumin/Globulin Ratio TSH Urine Color Yellow Urine Appearance Clear Urine pH 8.0 H Ur Specific [place] 1.006 Urine Protein Negative Urine Glucose (UA) Negative Urine Ketones Negative Urine Blood Negative Urine Nitrite Negative Urine Bilirubin Negative Urine Urobilinogen Negative Ur Leukocyte Esterase Negative Salicylates Urine Opiates Screen Ur Methadone, Qual Acetaminophen Urine Barbiturates Ur Phencyclidine (PCP) U Amphetamin/Meth Scrn MDMA (Ecstasy) Screen U Benzodiazepines Scrn Ur Cocaine Metabolite U Marijuana (THC) Screen Ethyl Alcohol mg/dL COVID-19 Eval [facility] SARS-CoV-2, RNA, NAAT NEGATIVE 01/02/20 01/02/20 01/02/20 18:12 18:12 18:12 WBC 6.48 RBC 4.90 Hgb 14.8 Hct 44.3 MCV 90.4 MCH 30.2 MCHC 33.4 RDW Std Deviation 44.1 RDW Coeff of Kaylah 13.4 Plt Count 231 MPV 8.9 Immature Gran % (Auto) 0.2 Neut % (Auto) 72.2 Lymph % (Auto) 18.4 Warren % (Auto) 8.5 Eos % (Auto) 0.5 Baso % (Auto) 0.2 Neut # (Auto) 4.69 Lymph # (Auto) 1.19 L Warren # (Auto) 0.55 Eos # (Auto) 0.03 Baso # (Auto) 0.01 Immature Gran # (Auto) 0.01 Sodium 140 Potassium 4.0 Chloride 106 Carbon Dioxide 30 Anion Gap 4.0 BUN 11 Creatinine 1.07 Est Cr Clr Drug Dosing 125.5 Est GFR ( Amer) 116.0 Est GFR (Non-Af Amer) 100.1 BUN/Creatinine Ratio 10.4 Glucose 90 Calcium 9.0 Total Bilirubin 0.5 AST 30 ALT 30 Alkaline Phosphatase 99 Total Protein 8.3 H Albumin 4.2 Globulin 4.1 H Albumin/Globulin Ratio 1.0 TSH 1.360 Urine Color Urine Appearance Urine pH Ur Specific [place] Urine Protein Urine Glucose (UA) Urine Ketones Urine Blood Urine Nitrite Urine Bilirubin Urine Urobilinogen Ur Leukocyte Esterase Salicylates < 1.7 L Urine Opiates Screen Ur Methadone, Qual Acetaminophen < 2 L Urine Barbiturates Ur Phencyclidine (PCP) U Amphetamin/Meth Scrn MDMA (Ecstasy) Screen U Benzodiazepines Scrn Ur Cocaine Metabolite U Marijuana (THC) Screen Ethyl Alcohol mg/dL COVID-19 Eval Order SARS-CoV-2, RNA, NAAT 01/02/20 01/02/20 18:12 20:33 WBC RBC Hgb Hct MCV MCH MCHC RDW Std Deviation RDW Coeff of Kaylah Plt Count MPV Immature Gran % (Auto) Neut % (Auto) Lymph % (Auto) Warren % (Auto) Eos % (Auto) Baso % (Auto) Neut # (Auto) Lymph # (Auto) Warren # (Auto) Eos # (Auto) Baso # (Auto) Immature Gran # (Auto) Sodium Potassium Chloride Carbon Dioxide Anion Gap BUN Creatinine Est Cr Clr Drug Dosing Est GFR ( Amer) Est GFR (Non-Af Amer) BUN/Creatinine Ratio Glucose Calcium Total Bilirubin AST ALT Alkaline Phosphatase Total Protein Albumin Globulin Albumin/Globulin Ratio TSH Urine Color Urine Appearance Urine pH Ur Specific [place] Urine Protein Urine Glucose (UA) Urine Ketones Urine Blood Urine Nitrite Urine Bilirubin Urine Urobilinogen Ur Leukocyte Esterase Salicylates Urine Opiates Screen Neg Ur Methadone, Qual Neg Acetaminophen Urine Barbiturates Neg Ur Phencyclidine (PCP) Neg U Amphetamin/Meth Scrn Neg MDMA (Ecstasy) Screen Neg U Benzodiazepines Scrn Neg Ur Cocaine Metabolite Neg U Marijuana (THC) Screen Neg Ethyl Alcohol mg/dL < 3.0 COVID-19 Eval Order SARS-CoV-2, RNA, NAAT Hospital Course (1) Bipolar 1 disorder: 01/02 - The patient was admitted to the [facility] ([facility]) on q15 min checks (behavioral with suicide precautions) for safety. The patient will participate in group, recreational, and milieu therapies and will be offered additional individual and family sessions as clinically appropriate. He was scheduled to increase his Lamictal on 01/04, will titrate tomorrow given good tolerability and ongoing suzanne. Titrate Risperdal for ease of dosing and patient prefers split dosing given daytime symptoms, will give 1 mg in am and 2 mg hs and monitor. No evidence of EPS. 01/03 -continue voluntary hospitalization, consider the need for conversion to an involuntary 302 commitment if patient persists in requests to leave, as he remains psychotic and is in a mixed state with suicidal ideation. He has no local outpatient treatment, and will need to be referred for psychiatry and therapy. He has little support in the area, and got an apartment where he plans to live alone, despite recommendations at the time of his last hospitalization that he returned home to [place] to live with parents. It is unclear why they did not follow this plan, and he will need a meeting with his father once he is less psychotic and able to tolerate it. -Move patient to a private room as soon as it is available, given his poor sleep, inappropriate interpersonal behavior, psychotic symptoms, and behavioral dyscontrol. -Increase risperidone to 1 mg every morning and every 5 p.m. and 2 mg at bedtime. Fasting labs from 12/21/2019 reviewed; glucose 106, FLP normal. Continue lamotrigine titration per standard titration schedule. 01/04 - Continue current medication regimen. Pt thoughts seem to be slightly more organized and goal directed, but he still is having considerable difficulty processing information. Pt receiving 1mg of risperidone qAM and 3mg qHS. - Continue MNPR at this time - When appropriate, will need to begin discharge planning by involving patient in decisions regarding where he will live, what supports are available, and where aftercare referrals will be made 01/05 - Pt requesting, and would benefit from, titration of risperidone - will order for 1mg qAM and 4mg qHS. Continue lamotrigine 50mg qAM. - Pt continues to have flight of ideas and ideas of reference. He is better able to articulate these ideas, but is still very unstable, labile, and unpredictable. - Support meeting scheduled with patient's father to discuss discharge planning and provide psychoeducation. Recommendations from our team are that patient return home with parental supervision and that he be enrolled in more intensive outpatient psychiatric programs back home. 01/06 - Reviewed recommendations for more intensive outpatient support with patient, pradip mayer at this time is reporting understanding of recommendation that he return home with his parents. Reviewed this with parents as well, who are now supportive of patient being referred to an [facility] and returning home to [place], [place]. - Family meeting today with both mother and father participating via phone - Continue current medication regimen with titration of risperidone as indicated. - Pt continues to be disorganized and delusional with flight of ideas. He is able to demonstrate some insight, admitting that he does not like feeling this way. He continues to request "more" and "stronger" medication. - This provider did discuss option to discontinue lamotrigine and replace with lithium - patient was open to conversation, but very clearly articulated that he is not interested in frequent blood draws. He reported "let's go to the max of Risperdal, and if that doesn't work then we can talk about blood draws." - Pt continues to require inpatient psychiatric treatment; will continue MNPR to permit for reduced stimulation, as patient admits his condition is worsened when interacting with peers who are also demonstrating poor boundaries. 01/07 -Today, the patient does not exhibit any delusional material in his thought content, and his thought processes, while sometimes somewhat tangential or idiosyncratic, are not consistent with the finding of flight of ideas. His speech is no longer pressured, and he does say that he feels that his current medications are reasonably well-tolerated and he can tell that he is "coming down" and getting better. The plan is to continue his current medications and titrate lamotrigine, which recent studies have indicated may be even more effective than lithium carbonate in treating bipolar disorderand often with fewer negative side effects. -Patient does note that risperidone is somewhat sedating, but he feels he can tolerate it and he also notes that it helps him sleep at night. -The patient understands the thinking behind the plan for him to temporarily return to the home of his parents and [place], [place]. However, he says that he feels that he is at this point "too Americanized," while his parents seem to view the family as a "corporation that is run by a top down management style." He says that he realizes that his parents, with every good intention, will attempt to direct every aspect of his life while seeking to guarantee "what is best for [him]," even if it is a matter that is relatively minor and seemingly unrelated to a mental illness. In other words, he says that he knows his parents well enough to know that they will use his mental illness as an excuse for tightening there control of his every day life. He mentions, for example, that his parents would never consent to allow him to spend the night with his girlfriend, and would be likely to say that that would not be good for his "mental health" even though the real reason would be cultural. 01/08 - Continue current medication regimen - risperidone dosing adjusted to allow for TID dosing of 1mg qAM, 1mg @17:00, and 3mg at bedtime. Pt feels this dosing was helpful yesterday - Pt continues to be ambivalent about his discharge plans - telling family today that he is returning home to [place], but consistently telling staff that he has no intention to leave [place]. Pt will need to be encouraged to make a decision so that appropriate aftercare planning can continue - He does admit that, should he stay in [place], he is willing for case management referral with eventual referral to [facility], and is willing to have his dad stay with him for several weeks until his girlfriend returns. Pt was clearly reminded that our recommendation is for a PHP/IOP option. He recognizes the need for additional services on discharge. - Reviewed patient's re-submission of his 72-hour notice. He admits he was not in a clear mind last evening when submitting it, but reports his thoughts are now clear and he wishes to leave Saturday. Pt did state he would be willing to remain in the hospital until aftercare plans were set up. 01/09 - Continue as above, discussed recommendation to continue TID dosing of risperidone on discharge. - Follow-up phone meeting with patient's father and the patient - attempting to solidify discharge plans. Pt reports he will stay in [place], father willing to live with the patient for the next several weeks to provide additional support. - Case management referral sent, will follow up tomorrow and hopefully have patient complete phone intake prior to discharge home 01/10 -Patient requested to consolidate risperidone to bedtime, so prescription sent for 1 week supply of 1 mg every morning and 4 mg at bedtime. -Continue lamotrigine 50 mg daily, and increase to 100 mg after 2 weeks (01/19/2020). -Follow-up with outpatient services: Psychiatry with Dr. Nicole, therapy with Meir Lyon at [facility], and blended case management. Recommend outpatient support services including psych rehab and mobile med management. (2) Cannabis abuse: 01/03 -reviewed during recent hospitalization, reportedly patient cut back on his marijuana use in the week that he was out of the hospital. UDS -on second presentation. Continue to support abstinence from controlled substances, and provide psychoeducation about the risks of substance use. 01/07 -abstinence from drugs of abuse, including marijuana, was reinforced today through patient education. Mental Health & Subst Abuse Tx Psychiatrist Name of Psychiatrist: [facility] Psychiatrist's Date of Appointment with Psychiatrist: 01/12/20 Time of Appointment with Psychiatrist: 12:40 p.m. Psychiatric Appointment Comment: [address], [address], [place], [place] Therapist Name of Therapist: [facility] Date of Therapist Appointment: 01/15/20 Time of Therapist Appointment: 8:00 a.m. Therapy Appointment Comment: Please utilize the Zoom instruction sheet Gaming Worker Name of Gaming Worker: MIGUEL ANGEL [facility] Jovon Perkins Phone Number for Gaming Worker: [phone] Case Management Appointment Comment: Follow up as needed to assist in schooling decisions Post Discharge Appointments Contact Information Discharge Discharge Address[address] [address], [address] [address] Discharge Plan Discharge Items Patient Disposition: Home - Self-Care Reason For Visit: BIPOLAR Discharge Diagnosis: Bipolar disorder, most recent episode mixed with psychosis Activity: Per Instructions section Non-emergency contact: Psychiatrist and Therapist Call non-emergency contact if: you have any medication questions and your symptoms worsen Follow-up/Referrals: PCP,NO [Primary Care Provider] - Diet: Regular Addtl Attending Provider Instructions: SPECIAL CARE INSTRUCTIONS: 1. Follow through with your scheduled aftercare appointments. If unable to keep an appointment, please call to reschedule. We recommended you return to [place] and attend a partial hospitalization program, which you declined. Partial hospitalization is not available in this area, but if symptoms do not improve with outpatient treatment, we recommend you attend the [facility] as previously discussed. 2. Take your medication only as prescribed. Medication should not be changed or stopped without the approval of your doctor. In the event of worsening symptoms or concerns about side effects, contact your doctor immediately. 3. Utilize new healthy coping skills, anger management skills, and stress management skills learned during your hospitalization. Journal feelings and process them with a support person. Identify stressors or situations that may result in relapse, deterioration or inappropriate behaviors and develop a plan to deal with those issues. 4. If your coping skills are ineffective and you are in crisis, contact your outpatient providers for direction. If unable to reach your providers, please call the [facility] CRISIS LINE AT , go to the [facility] walk-in center at [address], [address], [place], or go to the closest Emergency Room. 5. Avoid alcohol and un-prescribed drugs. 6. You have been provided with the Mental Health Advance Directives Pamphlet for your review. AFTERCARE APPOINTMENTS: * Please call your insurance company prior to your scheduled appointment to confirm your aftercare providers are covered. Take your insurance information to your appointments. WHO TO CALL AND WHEN: Medical Emergencies: For questions or emergencies related to your hospital stay, please contact the Inpatient Behavioral Health Unit at [phone]. A manager produce is on-call 05/11 for the Behavioral Health Unit for emergencies At any time you feel your situation is an emergency, you may also call 911 immediately. Pending Studies at Discharge: No Stand-Alone Forms: My [facility], Smoking Cessation, Suicide Prevention Resources Medications and DC Order Prescriptions: New lamotrigine [Lamictal] 25 mg Tablet 50 mg PO QAM Qty: 14 RF: 0 risperidone 1 mg Tablet 1 mg PO QAM Qty: 7 RF: 0 risperidone 4 mg tablet 4 mg PO HS Qty: 7 RF: 0 Discontinued risperidone 1 mg tablet 2.5 mg PO QPM RF: 0 lamotrigine [Lamictal] 25 mg Tablet 25 mg PO QAM Qty: 45 RF: 0 Discharge Orders: Discharge Order (Routine); Ordered 01/11/20 Ordered By: Giana Muir Admission Data Admit Date/Time: 01/02/20 22:07 Attending Provider: Giana Muir Admit Provider: Charissa Martinez Primary Care Provider: PCP,NO Other Interventions: PSY Interdisciplinary Discharge Planning Last Done: 01/10/20 10:46 Coding Level of Care Code 18390 D/C day mgmt > 30 min Diagnoses Bipolar 1 disorder F31.9 Cannabis abuse F12.10
== END 2020-01-11 11:12 | disposition home or self-care (01) | DRG 885 ==
LOC: ED 16:30 → SUATTDRO 22:07 → 3S 22:07